=== PATIENT | male | born 2000 | race African-American/Black ===

== ENCOUNTER 2022-05-12 14:32 | Outpatient (AMB) | payer MEDICAID, SELFPAY ==
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
== END 2022-05-12 16:13 | disposition home or self-care (01) ==
LOC: HO.HUSH 14:32
PROVIDERS: Visit Provider Urology
DX: G82.20 Paraplegia, unspecified (principal)
CPT/HCPCS: 99499

== ENCOUNTER → 2022-11-07 13:32 | Outpatient (BNVA) | payer MEDICAID, SELFPAY | PROVIDERS: Visit Provider Urology | DX: Z13.89 Encounter for screening for other disorder (principal) ==

== ENCOUNTER 2023-06-01 12:33 | Outpatient (REF) | payer OTHER, SELFPAY ==
--- NOTE | ~2023-06-01 | US_ITS ---
EXAMINATION: US RETROPERITONEAL LIMITED (RENAL ONLY) CLINICAL INFORMATION: Neuromuscular dysfunction of the bladder, unspecified. COMPARISON: Renal ultrasound 04/15/2020 and 11/28/2018. TECHNIQUE: Real-time imaging of the kidneys. FINDINGS: RIGHT KIDNEY: 9.2 x 4.4 x 5.0 cm (SAG x AP x TRV). The kidney is normal in size, contour, and echogenicity. Renal cortical thickness is normal. No calculi or focal parenchymal lesions. No hydronephrosis. LEFT KIDNEY: 9.4 x 4.7 x 5.0 cm (SAG x AP x TRV). The kidney is normal in size, contour, and echogenicity. Renal cortical thickness is normal. No calculi or focal parenchymal lesions. No hydronephrosis. US/US renal BI IMPRESSION: Normal renal ultrasound.
== END 2023-06-01 12:34 | disposition home or self-care (01) ==
LOC: HO.US 12:33
PROVIDERS: PCP Internal Medicine; Visit Provider Urology
DX: N31.9 Neuromuscular dysfunction of bladder, unspecified (principal)
CPT/HCPCS: 76775

== ENCOUNTER 2023-09-07 13:15 | Outpatient (AMB) | payer OTHER, SELFPAY ==
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
--- OUTSIDE RECORDS SUMMARY | 2023-09-07 13:17 | XMS_ITS | Continuity of Care Document ---
Author Name Unknown Organization [facility] Adult Address [address] [place] [address]- Care Team Providers Care Safety Patrol Officer Name Role Phone Peace MEDINA, Tacho Primary Care Physician Encounter [facility] Date(s): 02/19/23 - 03/21/23 [facility] [address] [place] [address]- Allergies, Adverse Reactions, Alerts Substance Reaction Severity [...] CONSTIPATION, # 30 supp, 5 Refills, Maintenance, 10/20/22 16:57:00 EST, [facility] #[id number], 168, cm, 05/15/22 15:58:00 EDT, Height Start Date: 10/20/22 Status: Ordered Chucks pads Chucks pads, See [...] 5 Refills, Maintenance, 02/01/23 16:28:00 EDT, Tablet, [facility] #[id number], 168, cm, 02/01/23 16:04:00 EDT... Start Date: 02/01/23 Stop Date: 07/31/23 Status: Ordered gabapentin 800 mg oral tablet 1 tablet, By Mouth, 3 times a day, # 270 tablet, 3 Refills, Maintenance, 12/21/22 14:00:00 EST, [facility] #[id number], 168, cm, 12/19/22 13:54:00 EST, Height Start Date: 12/21/22 Stop Date: 12/16/23 Status: Ordered nystatin topical 973622 u/gm cream 1 application, Topically, 2 times a day, Apply to affected area, # 30 Gm, 0 Refills, Maintenance, 12/20/22 11:25:00 EST, Cream, [facility] #[id number], 1 application Topically 2 times a day,Instr:Apply to affected area, 168, cm, 12/19/22 13:54:00... Start Date: 12/20/22 Status: Ordered polyethylene glycol 3350 oral powder for reconstitution = 17 Gm, By Mouth, Daily, dissolve in water before taking, # 527 Gm, 0 Refills, Maintenance, 03/19/20 16:16:00 EDT, REC Powder, [facility] #[id number], 17 Gm By Mouth Daily,Instr:dissolve in water before taking, 168, cm, 01/09/20 13:26:00 EST, He... Start Date: 03/19/20 Status: Ordered sertraline 50 mg oral tablet 1 tablet, By Mouth, Daily, # 90 tablet, 1 Refills, Maintenance, 10/23/22 10:10:00 EST, [facility] #[id number], 168, cm, 05/15/22 15:58:00 EDT, Height Start Date: 10/23/22 Status: Ordered triamcinolone 0.025% topical cream See Instructions, APPLY TOPICALLY TO THE AFFECTED AREA TWICE DAILY FOR 14 DAYS, # 60 Gm, 0 Refills,Maintenance, 12/20/22 11:25:00 EST, [facility] #[id number], 28, APPLY TOPICALLY TO THE AFFECTED AREA [...] Team Personnel Name: Celeste Manriquez RN Position: [facility] RN Member Role: Primary Care Nurse Name: Emerson Parra RN Position: [facility] RN Member Role: Primary Care Nurse Name: Radha Baldwin RN Position: [facility] RN Member Role: Primary Care Nurse Name: Alec Dangelo RN Position: [facility] Outreach Member Role: Primary Care Nurse Name: Cathy Santo RN Position: [facility] RN Member Role: Primary Care Nurse Name: Tosin Styles RN Position: [facility] Assembly Member Member Role: Primary Care Nurse Name: Lorene Martinez RN Position: [facility] Executive Chairman Member Role: Primary Care Nurse Name: Tacho Hand MD Position: [facility] Primary Care Physician Member Role: PCP Address: Address: [address] [place] [address] Name: Therese Schwab RN Position: [facility] RN Member Role: Primary Care Nurse Name: Andria Dillon RN Position: [facility] RN Member Role: Primary Care Nurse Care Team Related Persons Name: FLORES LONG Address: [place] [address] Name: GERALDINE COPELAND Address: home [address] [place] [address] Name: MABEL COPELAND Address: home [address] [place] [address]
--- OUTSIDE RECORDS SUMMARY | 2023-09-07 13:17 | XMS_ITS | Continuity of Care Document ---
Author Name Unknown Organization [facility] Adult Address [address] [place] [address]- Care Team Providers Care Coil Winder Repair Name Role Phone Peace MEDINA, Tacho Primary Care Physician En[place] [facility] Date(s): 12/19/22 - 01/18/23 [facility] Adult [address] [place] [address]- Allergies, Adverse Reactions, Alerts Substance Reaction Severity Status Latex Active Immunizations Not Given Vaccine Date Status Refusal Reason Influenza Virus Vaccine (oldterm) 12/22/19 Not Giv en Patient Refuses influenza virus vaccine, inactivated 08/06/17 Not Given Patient Refuses influenza virus vaccine, inactivated 11/21/16 Not Given Patient Refuses Medications bisacodyl 10 mg rectal suppository 1 supp, Rectally, Daily, PRN NEEDED FOR CONSTIPATION, # 30 supp, 5 Refills, Maintenance, 10/20/22 [facility]:57:[id number], 168, cm, 05/15/22 15:58:00 EDT, Height Start Date: 10/20/22 Status: Ordered gabapentin 800 mg oral tablet 1 tablet, By Mouth, 3 times a day, # 270 tablet, 3 Refills, Maintenance, 12/21/22 14:00:[id number], 168, cm, 12/19/22 13:54:00 EST, Height Start Date: 12/21/22 Stop Date: 12/16/23 Status: Ordered nystatin topical 453277 u/gm cream 1 application, Topically, 2 times a day, Apply to affected area, # 30 Gm, 0 Refills, Maintenance, 12/20/22 11:25:00 EST, [facility][id number], 1 application Topically 2 times a day,Instr:Apply to affected area, 168, cm, 12/19/22 13:54:00... Start Date: 12/20/22 Status: Ordered polyethylene glycol 3350 oral powder for reconstitution = 17 Gm, By Mouth, Daily, dissolve in water before taking, # 527 Gm, 0 Refills, Maintenance, 03/19/20 16:16:00 EDT, REC Powder, [facility] #[id number], 17 Gm By Mouth Daily,Instr:dissolve in water before taking, 168, cm, 01/09/20 13:26:00 EST, He... Start Date: 03/19/20 Status: Ordered sertraline 50 mg oral tablet 1 tablet, By Mouth, Daily, # 90 tablet, 1 Refills, Maintenance, 10/23/22 10:10:00 EST, [facility] #[id number], 168, cm, 05/15/22 15:58:00 EDT, Height Start Date: 10/23/22 Status: Ordered triamcinolone 0.025% topical cream See Instructions, APPLY TOPICALLY TO THE AFFECTED AREA TWICE DAILY FOR 14 DAYS, # 60 Gm, 0 Refills,Maintenance, 12/20/22 11:25:00 EST, [facility] #[id number], 28, APPLY TOPICALLY TO THE AFFECTED AREA [...] Team Personnel Name: Celeste Manriquez RN Position: [facility] RN Member Role: Primary Care Nurse Name: Emerson Parra RN Position: [facility] RN Member Role: Primary Care Nurse Name: Radha Baldwin RN Position: [facility] RN Member Role: Primary Care Nurse Name: Alec Dangelo RN Position: [facility] Outreach Member Role: Primary Care Nurse Name: Cathy Santo RN Position: [facility] RN Member Role: Primary Care Nurse Name: Tosin Styles RN Position: [facility] SN Denture Processor Member Role: Primary Care Nurse Name: Lorene Martinez RN Position: [facility] Hospital Care Asst Member Role: Primary Care Nurse Name: Tacho Hand MD Position: [facility] Primary Care Physician Member Role: PCP Address: Address: [address] [place] [address]- Name: Therese Schwab RN Position: [facility] RN Member Role: Primary Care Nurse Name: Andria Dillon RN Position: [facility] RN Member Role: Primary Care Nurse Care Team Related Persons Name: FLORES LONG Address: [place] [address] Name: GERALDINE COPELAND Address: [address] [place] [address] Name: MABEL COPELAND Address: [address] [address]
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
--- OUTSIDE RECORDS SUMMARY | 2023-09-07 13:17 | XMS_ITS | Continuity of Care Document ---
Author Name Unknown Organization [facility] Address [address] [place] [address]- Care Team Providers Care Medical Officer Psychiatry Name Role Phone Peace MEDINA, Tacho Primary Care Physician Encounter [facility] Date(s): 11/21/22 - 12/21/[address] [id number] Allergies, Adverse Reactions, Alerts Substance Reaction Severity [...] 30 supp, 5 Refills, Maintenance, 10/20/22 16:57:00 [facility] #[id number], 168, cm, 05/15/22 15:58:00 EDT, Height Start Date: 10/20/22 Status: Ordered gabapentin 800 mg oral tablet 1 tablet, By Mouth, 3 times a day, # 270 tablet, 3 Refills, Maintenance, 12/21/22 14:00:00 [facility] #[id number], 168, cm, 12/19/22 13:54:00 EST, Height Start Date: 12/21/22 Stop Date: 12/16/23 Status: Ordered nystatin topical 244342 u/gm cream 1 application, Topically, 2 times a day, Apply to affected area, # 30 Gm, 0 Refills, Maintenance, 12/20/22 11:25:00 EST, [facility] #[id number], 1 application Topically 2 times a day,Instr:Apply to affected area, 168, cm, 12/19/22 13:54:00... Start Date: 12/20/22 Status: Ordered polyethylene glycol 3350 oral powder for reconstitution = 17 Gm, By Mouth, Daily, dissolve in water before taking, # 527 Gm, 0 Refills, Maintenance, 03/19/20 16:16:00 EDT, REC Powder, [facility] #[id number], 17 Gm By Mouth Daily,Instr:dissolve in water before taking, 168, cm, 01/09/20 13:26:00 EST, He... Start Date: 03/19/20 Status: Ordered sertraline 50 mg oral tablet 1 tablet, By Mouth, Daily, # 90 tablet, 1 Refills, Maintenance, 10/23/22 10:10:00 EST, [facility] #[id number], 168, cm, 05/15/22 15:58:00 EDT, Height Start Date: 10/23/22 Status: Ordered triamcinolone 0.025% topical cream See Instructions, APPLY TOPICALLY TO THE AFFECTED AREA TWICE DAILY FOR 14 DAYS, # 60 Gm, 0 Refills,Maintenance, 12/20/22 11:25:00 EST, [facility] #[id number], 28, APPLY TOPICALLY TO THE AFFECTED AREA [...] Team Personnel Name: Celeste Manriquez RN Position: [facility] SN RN Member Role: Primary Care Nurse Name: Emerson Parra RN Position: [facility] RN Member Role: Primary Care Nurse Name: Radha Baldwin RN Position: [facility] RN Member Role: Primary Care Nurse Name: Alec Dangelo RN Position: [facility] Outreach Member Role: Primary Care Nurse Name: Cathy Santo RN Position: [facility] RN Member Role: Primary Care Nurse Name: Tosin Styles RN Position: [facility] SN Biology Teacher Member Role: Primary Care Nurse Name: Lorene Martinez RN Position: [facility] Hospital Curb Attendant Member Role: Primary Care Nurse Name: ePace MEDINA, Tacho Position: [facility] Primary Care Physician Member Role: PCP Address: Address: [address] [place] [address]- Name: Therese Schwab RN Position: [facility] RN Member Role: Primary Care Nurse Name: Andria Dillon RN Position: [facility] RN Member Role: Primary Care Nurse Care Team Related Persons Name: FLORES LONG Address: [place] [address] Name: GERALDINE COPELAND Address: home [address] [place] [address] Name: MABEL COPELAND Address: [address] [address]
--- NOTE | 2023-09-07 13:18 | MHC.OFFVIS ---
Intake Intake Visit Reasons: US results follow up Intake Note: Patient is Present for Telephone Follow Up US Urology Med: Methenamine Antibiotic Allergy: None Blood Thinner:None Pharamcy: [facility] Medication List - Last Reconciled 09/07/23 by Je Currie MD ascorbic acid (vitamin C) 1 g PO DAILY 90 days baclofen 10 mg PO DAILY bisacodyl 10 mg [place] DAILY PRN gabapentin 800 mg PO TID methenamine hippurate 1 g PO DAILY 90 days sertraline 50 mg PO DAILY underpads As directed 3 pads per day HPI HPI Comments History of Present Illness Details Awilda is a pleasant male. He is a patient of Dr. Hand. He is seen for the following urologic conditions - spinal cord injury - sexual impairment Telemedicine Evaluation 15 min Consultation DoxPrinciple Power Miranda Video attempted No infections since starting combination vitamin-C and methenamine Continue medication Minimal issues with catheter delivery As questions about insurance coverage for Self catheterization T5 spinal cord injury July 2016 Performs intermittent catheterization - this will be expected to be ongoing for the foreseeable future Renal ultrasound 06/10 NAD Has questions regarding sexual activity Would like to investigate intimate rider accessories Will have nursing check insurance availability Review of Systems Const All systems reviewed & are unremarkable except as noted in HPI and below Reports no additional complaints Resp Reports no additional complaints GI Reports no additional complaints Reports as per HPI Musc Reports no additional complaints Physical Exam Telemedicine evaluation Appropriate responses Regular breathing rate and rhythm HEENT Head: Yes normal to inspection Ears: hearing grossly normal bilaterally Eyes General: appearance normal, both eyes and all related structures Neck Neck: Yes normal visual inspection Chest Chest palpation & inspection: normal inspection of the chest Resp Effort & Inspection: normal respiratory effort and able to speak in complete sentences Assessment & Plan Assessment & Plan (1) Erectile dysfunction due to injury: Code(s): N52.8 - Other male erectile dysfunction (2) Neurogenic urinary bladder disorder: Code(s): N31.9 - Neuromuscular dysfunction of bladder, unspecified (3) 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 No major barriers to patient understanding were identified. An opportunity to ask questions regarding the treatment plan was provided. All questions were answered. The patient expressed understanding and agreement with the above treatment plan. The patient is aware they should contact our office by phone for worsening of their current condition or the appearance of new urologic symptoms. Compliance is encouraged with any medications and followup testing that is ordered. It is a privilege to participate in the urologic care of your patient. If you have any questions or concerns regarding treatment for the above conditions, or other urologic issues, please do not hesitate to contact me. The office telephone contact is [phone]. This note is constructed using voice recognition software. While every effort has been made to ensure accuracy water pollution control inspector errors may have been included. Yours sincerely, Dr Je Currie MD, [facility] - Urology Providers of Expert, Compassionate Care for the Genitourinary System Telehealth Telehealth Location of provider rendering services: practice address Location of patient: address on file Patient Identification confirmed using: Name, : Yes Telehealth method: video Patient verbally consented to treatment: Yes Patient verbally consented to billing insurance company: Yes Patient informed of any privacy concerns related to visit: Yes Coding Level of Care Code Tele Est Pt Level 3 (16533) Diagnoses Erectile dysfunction due to injury N52.8 Neurogenic urinary bladder disorder N31.9 Paraplegic spinal paralysis G82.20
--- OUTSIDE RECORDS SUMMARY | 2023-09-07 13:18 | XMS_ITS | Continuity of Care Document ---
Author Name Unknown Organization [facility] Address [address] [place] [address]- Care Team Providers Care Cracking Unit Operator Name Role Phone Peace MEDINA, Tacho Primary Care Physician [phone] [facility] Date(s): 11/22/22 - 12/22/22 [facility] [address] [place] [address]- Allergies, Adverse Reactions, Alerts Substance Reaction Severity [...] 30 supp, 5 Refills, Maintenance, 10/20/22 16:57:00 [facility] #[id number], 168, cm, 05/15/22 15:58:00 EDT, Height Start Date: 10/20/22 Status: Ordered gabapentin 800 mg oral tablet 1 tablet, By Mouth, 3 times a day, # 270 tablet, 3 Refills, Maintenance, 12/21/22 14:00:00 [facility] #[id number], 168, cm, 12/19/22 13:54:00 EST, Height Start Date: 12/21/22 Stop Date: 12/16/23 Status: Ordered nystatin topical 778726 u/gm cream 1 application, Topically, 2 times a day, Apply to affected area, # 30 Gm, 0 Refills, Maintenance, 12/20/22 11:25:00 EST, Cream, [facility] #[id number], 1 application Topically 2 times a day,Instr:Apply to affected area, 168, cm, 12/19/22 13:54:00... Start Date: 12/20/22 Status: Ordered polyethylene glycol 3350 oral powder for reconstitution = 17 Gm, By Mouth, Daily, dissolve in water before taking, # 527 Gm, 0 Refills, Maintenance, 03/19/20 16:16:00 EDT, REC Powder, [facility] #[id number], 17 Gm By Mouth Daily,Instr:dissolve in water before taking, 168, cm, 01/09/20 13:26:00 EST, He... Start Date: 03/19/20 Status: Ordered sertraline 50 mg oral tablet 1 tablet, By Mouth, Daily, # 90 tablet, 1 Refills, Maintenance, 10/23/22 10:10:00 EST, [facility] #[id number], 168, cm, 05/15/22 15:58:00 EDT, Height Start Date: 10/23/22 Status: Ordered triamcinolone 0.025% topical cream See Instructions, APPLY TOPICALLY TO THE AFFECTED AREA TWICE DAILY FOR 14 DAYS, # 60 Gm, 0 Refills,Maintenance, 12/20/22 11:25:00 EST, [facility] #[id number], 28, APPLY TOPICALLY TO THE AFFECTED AREA [...] Team Personnel Name: Celeste Manriquez RN Position: [facility] SN RN Member Role: Primary Care Nurse Name: Emerson Parra RN Position: [facility] RN Member Role: Primary Care Nurse Name: Radha Baldwin RN Position: [facility] RN Member Role: Primary Care Nurse Name: Alec Dangelo RN Position: [facility] Outreach Member Role: Primary Care Nurse Name: Cathy Santo RN Position: [facility] RN Member Role: Primary Care Nurse Name: Tosin Styles RN Position: [facility] SN Medical Assistant Secretary Member Role: Primary Care Nurse Name: Lorene Martinez RN Position: [facility] Hospital Pottery Striper Member Role: Primary Care Nurse Name: Peace MEDINA, Tacho Position: [facility] Primary Care Physician Member Role: PCP Address: Address: [address] [place] [address]- Name: Therese Schwab RN Position: [facility] RN Member Role: Primary Care Nurse Name: Andria Dillon RN Position: [facility] RN Member Role: Primary Care Nurse Care Team Related Persons Name: FLORES LONG Address: [place] [address] Name: GERALDINE COPELAND Address: home [address] [place] [address] Name: MABEL COPELAND Address: home [address] [place] [address]
--- OUTSIDE RECORDS SUMMARY | 2023-09-07 13:18 | XMS_ITS | Continuity of Care Document ---
Author Name Unknown Organization [facility] Address [address] [place] [address]- Care Team Providers Care Applications Engineer Name Role Phone Tacho Hand MD Primary Care Physician [phone] Encounter [facility] Date(s): 12/21/22 - 01/20/23 [facility] [address] [place] [address]- Attending Physician: Reyna Zuniga Admitting Physician: AdmReyna pardo Referring Physician: AdmtrReyna Allergies, Adverse Reactions, Alerts Substance Reaction Severity [...] 30 supp, 5 Refills, Maintenance, 10/20/22 16:57:00 [id number], 168, cm, 05/15/22 15:58:00 EDT, Height Start Date: 10/20/22 Status: Ordered gabapentin 800 mg oral tablet 1 tablet, By Mouth, 3 times a day, # 270 tablet, 3 Refills, Maintenance, 12/21/22 14:00:00 [facility] #[id number], 168, cm, 12/19/22 13:54:00 EST, Height Start Date: 12/21/22 Stop Date: 12/16/23 Status: Ordered nystatin topical 895536 u/gm cream 1 application, Topically, 2 times a day, Apply to affected area, # 30 Gm, 0 Refills, Maintenance, 12/20/22 11:25:00 EST, Cream, [facility] #[id number], 1 application Topically 2 times a day,Instr:Apply to affected area, 168, cm, 12/19/22 13:54:00... Start Date: 12/20/22 Status: Ordered polyethylene glycol 3350 oral powder for reconstitution = 17 Gm, By Mouth, Daily, dissolve in water before taking, # 527 Gm, 0 Refills, Maintenance, 03/19/20 16:16:00 EDT, REC Powder, [facility] #[id number], 17 Gm By Mouth Daily,Instr:dissolve in water before taking, 168, cm, 01/09/20 13:26:00 EST, He... Start Date: 03/19/20 Status: Ordered sertraline 50 mg oral tablet 1 tablet, By Mouth, Daily, # 90 tablet, 1 Refills, Maintenance, 10/23/22 10:10:00 EST, [facility] #[id number], 168, cm, 05/15/22 15:58:00 EDT, Height Start Date: 10/23/22 Status: Ordered triamcinolone 0.025% topical cream See Instructions, APPLY TOPICALLY TO THE AFFECTED AREA TWICE DAILY FOR 14 DAYS, # 60 Gm, 0 Refills,Maintenance, 12/20/22 11:25:00 EST, [facility] #[id number], 28, APPLY TOPICALLY TO THE AFFECTED AREA [...] Team Personnel Name: Celeste Manriquez RN Position: [facility] RN Member Role: Primary Care Nurse Name: Emerson Parra RN Position: [facility] RN Member Role: Primary Care Nurse Name: Radha Baldwin RN Position: [facility] RN Member Role: Primary Care Nurse Name: Alec Dangelo RN Position: [facility] Outreach Member Role: Primary Care Nurse Name: Cathy Santo RN Position: [facility] RN Member Role: Primary Care Nurse Name: Tosin Styles RN Position: [facility] SN Rn Transitional Care Member Role: Primary Care Nurse Name: Lorene Martinez RN Position: [facility] Hospital Chemical Machine Tender Member Role: Primary Care Nurse Name: Peace MEDINA, Tacho Position: [facility] Primary Care Physician Member Role: PCP Address: Address: [address] [place] [id number] Name: Therese Schwab RN Position: [facility] RN Member Role: Primary Care Nurse Name: Andria Dillon RN Position: [facility] RN Member Role: Primary Care Nurse Care Team Related Persons Name: FLORES LONG Address: [place] [address] Name: GERALDINE COPELAND Address: home [address] [place] [address] Name: MABEL COPELAND Address: home [address] [place] [address]
--- OUTSIDE RECORDS SUMMARY | 2023-09-07 13:18 | XMS_ITS | Continuity of Care Document ---
Author Name Unknown Organization [facility] Address [address] [place] [address]- Care Team Providers Care Market Maker Name Role Phone Tacho Hand MD Primary Care Physician [phone] Encounter [facility] Date(s): 02/12/23 - 03/14/23 [facility] [address] [place] [address]- Allergies, Adverse Reactions, Alerts Substance Reaction Severity [...] supp, 5 Refills, Maintenance, 10/20/22 16:57:00 EST, [facility] #[id number], 168, cm, 05/15/22 15:58:00 EDT, Height Start [...] 5 Refills, Maintenance, 02/01/23 16:28:00 EDT, Tablet, [facility] #[id number], 168, cm, 02/01/23 16:04:00 EDT... Start Date: 02/01/23 Stop Date: 07/31/23 Status: Ordered gabapentin 800 mg oral tablet 1 tablet, By Mouth, 3 times a day, # 270 tablet, 3 Refills, Maintenance, 12/21/22 14:00:00 EST, [facility] #[id number], 168, cm, 12/19/22 13:54:00 EST, Height Start Date: 12/21/22 Stop Date: 12/16/23 Status: Ordered nystatin topical 142283 u/gm cream 1 application, Topically, 2 times a day, Apply to affected area, # 30 Gm, 0 Refills, Maintenance, 12/20/22 11:25:00 EST, Cream, [facility] #44712, 1 application Topically 2 times a day,Instr:Apply to affected area, 168, cm, 12/19/22 13:54:00... Start Date: 12/20/22 Status: Ordered polyethylene glycol 3350 oral powder for reconstitution = 17 Gm, By Mouth, Daily, dissolve in water before taking, # 527 Gm, 0 Refills, Maintenance, 03/19/20 16:16:00 EDT, REC Powder, [facility] #[id number], 17 Gm By Mouth Daily,Instr:dissolve in water before taking, 168, cm, 01/09/20 13:26:00 EST, He... Start Date: 03/19/20 Status: Ordered sertraline 50 mg oral tablet 1 tablet, By Mouth, Daily, # 90 tablet, 1 Refills, Maintenance, 10/23/22 10:10:00 EST, [facility] #[id number], 168, cm, 05/15/22 15:58:00 EDT, Height Start Date: 10/23/22 Status: Ordered triamcinolone 0.025% topical cream See Instructions, APPLY TOPICALLY TO THE AFFECTED AREA TWICE DAILY FOR 14 DAYS, # 60 Gm, 0 Refills,Maintenance, 12/20/22 11:25:00 EST, [facility] #[id number], 28, APPLY TOPICALLY TO THE AFFECTED AREA [...] Team Personnel Name: Celeste Manriquez RN Position: [facility] RN Member Role: Primary Care Nurse Name: Emerson Parra RN Position: [facility] RN Member Role: Primary Care Nurse Name: Radha Baldwin RN Position: [facility] RN Member Role: Primary Care Nurse Name: Alec Dangelo RN Position: [facility] Outreach Member Role: Primary Care Nurse Name: Cathy Santo RN Position: [facility] RN Member Role: Primary Care Nurse Name: Tosin Styles RN Position: [facility] Trailer Technician Member Role: Primary Care Nurse Name: Lorene Martinez RN Position: [facility] Hospital Instrumentation And Control Technician Member Role: Primary Care Nurse Name: Tacho Hand MD Position: [facility] Primary Care Physician Member Role: PCP Address: Address: [address] [place] [address]- Name: Therese Schwab RN Position: [facility] RN Member Role: Primary Care Nurse Name: Andria Dillon RN Position: [facility] RN Member Role: Primary Care Nurse Care Team Related Persons Name: FLORES LONG Address: [place] [address] Name: GERALDINE COPELAND Address: [address] [place] [address] Name: MABEL COPELAND Address: home [address] [place] [address]
--- OUTSIDE RECORDS SUMMARY | 2023-09-07 13:18 | XMS_ITS | Continuity of Care Document ---
Author Name Unknown Organization [facility] Address [address] [place] [address]- Care Team Providers Care Pan Pusher Name Role Phone Peace MEDINA, Tacho Primary Care Physician [phone] [place] [facility] [place]s): 01/09/23 - 05/26/23 [facility] [address] [place] [address]- Attending Physician: Tacho Hand MD Allergies, Adverse [...] supp, 5 Refills, Maintenance, 04/11/23 10:41:00 EDT, [facility] #[id number], 168, cm, 02/01/23 16:04:00 EDT, Height Start [...] 5 Refills, Maintenance, 02/01/23 16:28:00 EDT, Tablet, [facility] #[id number], 168, cm, 02/01/23 16:04:00 EDT... Start Date: 02/01/23 Stop Date: 07/31/23 Status: Ordered gabapentin 800 mg oral tablet 1 tablet, By Mouth, 3 times a day, # 270 tablet, 3 Refills, Maintenance, 12/21/22 14:00:00 EST, [facility] #[id number], 168, cm, 12/19/22 13:54:00 EST, Height Start Date: 12/21/22 Stop Date: 12/16/23 Status: Ordered nystatin topical 170260 u/gm cream 1 application, Topically, 2 times a day, Apply to affected area, # 30 Gm, 0 Refills, Maintenance, 12/20/22 11:25:00 EST, Cream, [facility] #[id number], 1 application Topically 2 times a day,Instr:Apply to affected area, 168, cm, 12/19/22 13:54:00... Start Date: 12/20/22 Status: Ordered polyethylene glycol 3350 oral powder for reconstitution = 17 Gm, By Mouth, Daily, dissolve in water before taking, # 527 Gm, 0 Refills, Maintenance, 03/19/20 16:16:00 EDT, REC Powder, [facility] #26485, 17 Gm By Mouth Daily,Instr:dissolve in water before taking, 168, cm, 01/09/20 13:26:00 EST, He... Start Date: 03/19/20 Status: Ordered sertraline 50 mg oral tablet 1 tablet, By Mouth, Daily, # 90 tablet, 1 Refills, Maintenance, 10/23/22 10:10:00 EST, [facility] #[id number], 168, cm, 05/15/22 15:58:00 EDT, Height Start Date: 10/23/22 Status: Ordered triamcinolone 0.025% topical cream See Instructions, APPLY TOPICALLY TO THE AFFECTED AREA TWICE DAILY FOR 14 DAYS, # 60 Gm, 0 Refills,Maintenance, 12/20/22 11:25:00 EST, [facility] #[id number], 28, APPLY TOPICALLY TO THE AFFECTED AREA [...] Team Personnel Name: Celeste Manriquez RN Position: [facility] RN Member Role: Primary Care Nurse Name: [...] Care Nurse Name: Tosin Styles RN Position: [facility] Toll Collector Supervisor Member Role: Primary Care Nurse Name: Lorene Martinez RN Position: [facility] Hospital Plastic Sewer Member Role: Primary Care Nurse Name: Tacho Hand MD Position: [facility] Physician - Primary Care Member Role: PCP Address: Address: [address] [place] [address] Name: Therese Schwab RN Position: [facility] RN Member Role: Primary Care Nurse Name: Andria Dillon RN Position: [facility] RN Member Role: Primary Care Nurse Care Team Related Persons Name: JEREMIAH LONGES Address: [place] [address] Name: GERALDINE COPELAND Address: home [address] [place] [address] Name: MABEL COPELAND Address: home [address] [place] [address]
--- OUTSIDE RECORDS SUMMARY | 2023-09-07 13:19 | XMS_ITS | Continuity of Care Document ---
Author Name Unknown Organization [facility] Adult Address [address] [place] [address]- Care Team Providers Care Sanitary Inspector Name Role Phone Peace MEDINA, Tacho Primary Care Physician [phone] Encounter [facility] [place] Date(s): 05/09/23 - 06/08/23 [facility] [address] [place] [phone]- Allergies, Adverse Reactions, Alerts Substance Reaction Severity [...] supp, 5 Refills, Maintenance, 04/11/23 10:41:00 EDT, [facility] #[id number], 168, cm, 02/01/23 16:04:00 EDT, Height Start [...] 5 Refills, Maintenance, 02/01/23 16:28:00 EDT, Tablet, [facility] #[id number], 168, cm, 02/01/23 16:04:00 EDT... Start Date: 02/01/23 Stop Date: 07/31/23 Status: Ordered gabapentin 800 mg oral tablet 1 tablet, By Mouth, 3 times a day, # 270 tablet, 3 Refills, Maintenance, 12/21/22 14:00:00 EST, [facility] #[id number], 168, cm, 12/19/22 13:54:00 EST, Height Start Date: 12/21/22 Stop Date: 12/16/23 Status: Ordered nystatin topical 460146 u/gm cream 1 application, Topically, 2 times a day, Apply to affected area, # 30 Gm, 0 Refills, Maintenance, 12/20/22 11:25:00 EST, Cream, [facility] #00414, 1 application Topically 2 times a day,Instr:Apply to affected area, 168, cm, 12/19/22 13:54:00... Start Date: 12/20/22 Status: Ordered polyethylene glycol 3350 oral powder for reconstitution = 17 Gm, By Mouth, Daily, dissolve in water before taking, # 527 Gm, 0 Refills, Maintenance, 03/19/20 16:16:00 EDT, REC Powder, [facility] #[id number], 17 Gm By Mouth Daily,Instr:dissolve in water before taking, 168, cm, 01/09/20 13:26:00 EST, He... Start Date: 03/19/20 Status: Ordered sertraline 50 mg oral tablet 1 tablet, By Mouth, Daily, # 90 tablet, 1 Refills, Maintenance, 10/23/22 10:10:00 EST, [facility] #[id number], 168, cm, 05/15/22 15:58:00 EDT, Height Start Date: 10/23/22 Status: Ordered triamcinolone 0.025% topical cream See Instructions, APPLY TOPICALLY TO THE AFFECTED AREA TWICE DAILY FOR 14 DAYS, # 60 Gm, 0 Refills,Maintenance, 12/20/22 11:25:00 EST, [facility] #[id number], 28, APPLY TOPICALLY TO THE AFFECTED AREA [...] Care Nurse Name: Tosin Styles RN Position: [facility] Press Shop Supervisor Member Role: Primary Care Nurse Name: Lorene Martinez RN Position: [facility] Or Assistant Member Role: Primary Care Nurse Name: Tacho Hand MD Position: [facility] Physician - Primary Care Member Role: PCP Address: Address: [address] [place] [address]- Name: Therese Schwab RN Position: [facility] RN Member Role: Primary Care Nurse Name: Andria Dillon RN Position: [facility] RN Member Role: Primary Care Nurse Care Team Related Persons Name: FLORES LONG Address: [place] [address] Name: GERALDINE COPELAND Address: home [address] [place] [address] Name: MABEL COPELAND Address: home [address] [place] [id number]
--- OUTSIDE RECORDS SUMMARY | 2023-09-07 13:19 | XMS_ITS | Continuity of Care Document ---
Author Name Unknown Organization [facility] Adult Address [address] [place] [address]- Care Team Providers Care Orchard Pruner Name Role Phone Peace MEDINA, Tacho Primary Care Physician [phone] [place] [facility] [place] 11/28/22 - 12/28/22 [facility] Adult [address] [place] [address]- Allergies, Adverse Reactions, Alerts Substance Reaction Severity [...] 30 supp, 5 Refills, Maintenance, 10/20/22 16:57:00 [facility][id number], 168, cm, 05/15/22 15:58:00 EDT, Height Start Date: 10/20/22 Status: Ordered gabapentin 800 mg oral tablet 1 tablet, By Mouth, 3 times a day, # 270 tablet, 3 Refills, Maintenance, 12/21/22 14:00:00 [facility] #[id number], 168, cm, 12/19/22 13:54:00 EST, Height Start Date: 12/21/22 Stop Date: 12/16/23 Status: Ordered nystatin topical 730106 u/gm cream 1 application, Topically, 2 times a day, Apply to affected area, # 30 Gm, 0 Refills, Maintenance, 12/20/22 11:25:00 EST, Cream, [facility] #[id number], 1 application Topically 2 times a day,Instr:Apply to affected area, 168, cm, 12/19/22 13:54:00... Start Date: 12/20/22 Status: Ordered polyethylene glycol 3350 oral powder for reconstitution = 17 Gm, By Mouth, Daily, dissolve in water before taking, # 527 Gm, 0 Refills, Maintenance, 03/19/20 16:16:00 EDT, REC Powder, [facility] #[id number], 17 Gm By Mouth Daily,Instr:dissolve in water before taking, 168, cm, 01/09/20 13:26:00 EST, He... Start Date: 03/19/20 Status: Ordered sertraline 50 mg oral tablet 1 tablet, By Mouth, Daily, # 90 tablet, 1 Refills, Maintenance, 10/23/22 10:10:00 EST, [facility] #[id number], 168, cm, 05/15/22 15:58:00 EDT, Height Start Date: 10/23/22 Status: Ordered triamcinolone 0.025% topical cream See Instructions, APPLY TOPICALLY TO THE AFFECTED AREA TWICE DAILY FOR 14 DAYS, # 60 Gm, 0 Refills,Maintenance, 12/20/22 11:25:00 EST, [facility] #[id number], 28, APPLY TOPICALLY TO THE AFFECTED AREA [...] Team Personnel Name: Celeste Manriquez RN Position: [facility] SN RN Member Role: Primary Care Nurse Name: Emerson Parra RN Position: [facility] RN Member Role: Primary Care Nurse Name: Radha Baldwin RN Position: [facility] RN Member Role: Primary Care Nurse Name: Alec Dangelo RN Position: [facility] Outreach Member Role: Primary Care Nurse Name: Cathy Santo RN Position: [facility] RN Member Role: Primary Care Nurse Name: Tosin Styles RN Position: [facility] SN Chorus Dancer Member Role: Primary Care Nurse Name: Lorene Martinez RN Position: [facility] Hospital Bomb Squad Officer Member Role: Primary Care Nurse Name: Peace MEDINA, Tacho Position: [facility] Primary Care Physician Member Role: PCP Address: Address: [address] [place] [id number]- Name: Therese Schwab RN Position: [facility] RN Member Role: Primary Care Nurse Name: Andria Dillon RN Position: [facility] RN Member Role: Primary Care Nurse Care Team Related Persons Name: FLORES LONG Address: [place] [address] Name: GERALDINE COPELAND Address: home [address] [place] [address] Name: MABEL COPELAND Address: home [address] [place] [address]
--- OUTSIDE RECORDS SUMMARY | 2023-09-07 13:19 | XMS_ITS | Continuity of Care Document ---
Author Name Unknown Organization [facility] Adult Address [address] [place] [address]- Care Team Providers Care Manager Golf Name Role Phone Peace MEDINA, Tacho Primary Care Physician En[place] [facility] [place] Date(s): 11/01/22 - 12/01/22 [facility] Adult [address] [place] [phone]- Allergies, Adverse Reactions, Alerts Substance Reaction Severity Status Latex Active Immunizations Not Given Vaccine Date Status Refusal Reason Influenza Virus Vaccine (oldterm) 12/22/19 Not Giv en Patient Refuses influenza virus vaccine, inactivated 08/06/17 Not Given Patient Refuses influenza virus vaccine, inactivated 11/21/16 Not Given Patient Refuses Medications ammonium lactate 12% topical lotion 1 application, Topically, Daily, # 567 Gm, 0 Refills, Maintenance, 06/28/22 7:36:00 EDT, Lotion, [facility] #[id number], Partial fill upon patient request if the prescription is for a schedule II opioid drug., 1 application Topically Daily, 168,... Start Date: 06/28/22 Status: Ordered Aquaphor Itch Relief Maximum Strength 1% topical ointment See Instructions, Topically 2 times a day for 2 wks, # 25 Gm, 0 Refills, Maintenance, 05/15/22 17:17:00 EDT, [facility] #[id number], Partial fill upon patient request if the prescription is for a schedule II opioid drug., Topically 2 times a day... Start Date: 05/15/22 Status: Ordered Big long shower chair Big long shower chair, See Instructions, # 1 each, Refills 0, Tot. Refills 0, Maintenance, Big longshower chair weighs 168 pounds, 10/26/22 19:50:00 EST, Supply, 168, cm, 10/26/22 10:39:00 EST, Height Start Date: 10/26/22 Status: Ordered bisacodyl 10 mg rectal suppository 1 supp, Rectally, Daily, PRN NEEDED FOR CONSTIPATION, # 30 supp, 5 Refills, Maintenance, 10/20/22 16:57:00 EST, [facility] #[id number], 168, cm, 05/15/22 15:58:00 EDT, Height Start Date: 10/20/22 Status: Ordered gabapentin 800 mg oral tablet See Instructions, TAKE 1 TABLET BY MOUTH THREE TIMES DAILY, # 90 tablet, 0 Refills, Maintenance, 11/24/22 9:51:00 EST, [facility] #[id number], 168, cm, 10/26/22 10:39:00 EST, Height Start Date: 11/24/22 Status: Ordered gabapentin 800 mg oral tablet 1 tablet, By Mouth, 3 times a day, # 90 tablet, 0 Refills, Maintenance, 10/24/22 9:20:00 EST, [facility] #[id number], 168, cm, 05/15/22 15:58:00 EDT, Height Start Date: 10/24/22 Status: Ordered Hand-held shower Hand-held shower, See Instructions, # 1 each, Refills 0, Tot. Refills 0, Maintenance, Use as directed, 10/26/22 22:03:00 EST, [facility], 168, cm, 10/26/22 10:39:00 EST, Height Start Date: 10/26/22 Status: Ordered nystatin topical 413574 u/gm cream 1 application, Topically, 2 times a day, Apply to affected area, # 30 Gm, 0 Refills, Maintenance, 06/09/22 14:50:00 EDT, Cream, [facility] #[id number], 1 application Topically 2 times a day,Instr:Apply to affected area, 168, cm, 05/15/22 15:58:00... Start Date: 06/09/22 Status: Ordered polyethylene glycol 3350 oral powder for reconstitution = 17 Gm, By Mouth, Daily, dissolve in water before taking, # 527 Gm, 0 Refills, Maintenance, 03/19/20 16:16:00 EDT, REC Powder, [facility] #51543, 17 Gm By Mouth Daily,Instr:dissolve in water before taking, 168, cm, 01/09/20 13:26:00 EST, He... Start Date: 03/19/20 Status: Ordered sertraline 50 mg oral tablet 1 tablet, By Mouth, Daily, # 90 tablet, 1 Refills, Maintenance, 10/23/22 10:10:00 EST, [facility] #[id number], 168, cm, 05/15/22 15:58:00 EDT, Height Start Date: 10/23/22 Status: Ordered triamcinolone 0.025% topical cream See Instructions, APPLY TOPICALLY TO THE AFFECTED AREA TWICE DAILY FOR 14 DAYS, # 60 Gm, 0 Refills,Maintenance, 10/24/22 9:19:00 EST, [facility] #[id number], 28, APPLY TOPICALLY TO THE AFFECTEDAREA TWICE DAILY FOR 14 DAYS, 168, cm, 05/15/22 15:... Start Date: 10/24/22 Status: Ordered Problem List Condition Confirmation Course Effective Dates Status Health St [facility] Informant History of alcohol dependence Confirmed Active Learning disability Confirmed Stable Active Major depression, recurrent Confirmed Active Spinal paraplegia 1 Confirmed Active 1after shot in the back Social History Social History Type Response Smoking Status Never (less than 100 in lifetime) entered on: 12/22/19 Sex Male Patient Care team information Care Team Personnel Name: Celeste Manriquez RN Position: [facility] RN Member Role: Primary Care Nurse Name: Emerson Parra RN Position: [facility] RN Member Role: Primary Care Nurse Name: Radha Baldwin RN Position: [facility] RN Member Role: Primary Care Nurse Name: Alec Dangelo RN Position: [facility] Outreach Member Role: Primary Care Nurse Name: Cathy Santo RN Position: [facility] RN Member Role: Primary Care Nurse Name: Tosin Styles RN Position: [facility] Border Measurer Member Role: Primary Care Nurse Name: Lorene Martinez RN Position: [facility] Hospital Armored Car Guard And Driver Member Role: Primary Care Nurse Name: Tacho Hand MD Position: [facility] Primary Care Physician Member Role: PCP Address: Address: [address] [place] [id number] Name: Therese Schwab RN Position: S RN Member Role: Primary Care Nurse Name: Andria Dillon RN Position: S RN Member Role: Primary Care Nurse Care Team Related Persons Name: FLORES LONG Address: [place] [address] Name: GERALDINE COPELAND Address: home [address] [place] [address] Name: MABEL COPELAND Address: [place] [address]
--- OUTSIDE RECORDS SUMMARY | 2023-09-07 13:19 | XMS_ITS | Continuity of Care Document ---
Author Name Unknown Organization [facility] Adult Address [address] [place] [address]- Care Team Providers Care Gyroscopic Instrument Mechanic Name Role Phone Peace MEDINA, Tacho Primary Care Physician [phone] Encounter [facility] [place] Date(s): 11/17/22 - 12/17/22 [facility] Adult [address] [place] [address]- Allergies, Adverse Reactions, Alerts Substance Reaction Severity [...] 0 Refills, Maintenance, 06/28/22 7:36:00 EDT, Lotion, [facility] #[id number], Partial fill upon patient request if the prescription is for a schedule II opioid drug., 1 application Topically Daily, 168,... Start Date: 06/28/22 Status: Ordered Aquaphor Itch Relief Maximum Strength 1% topical ointment See Instructions, Topically 2 times a day for 2 wks, # 25 Gm, 0 Refills, Maintenance, 05/15/22 17:17:00 EDT, [facility] #[id number], Partial fill upon patient request if the [...] supp, 5 Refills, Maintenance, 10/20/22 16:57:00 EST, [facility] #[id number], 168, cm, 05/15/22 15:58:00 EDT, Height Start Date: 10/20/22 Status: Ordered gabapentin 800 mg oral tablet See Instructions, TAKE 1 TABLET BY MOUTH THREE TIMES DAILY, # 90 tablet, 0 Refills, Maintenance, 11/24/22 9:51:00 EST, [facility] #[id number], 168, cm, 10/26/22 10:39:00 EST, Height Start Date: 11/24/22 Status: Ordered gabapentin 800 mg oral tablet 1 tablet, By Mouth, 3 times a day, # 90 tablet, 0 Refills, Maintenance, 10/24/22 9:20:00 EST, [facility] #[id number], 168, cm, 05/15/22 15:58:00 EDT, Height Start Date: 10/24/22 Status: Ordered Hand-held shower Hand-held shower, See Instructions, # 1 each, Refills 0, Tot. Refills 0, Maintenance, Use as directed, 10/26/22 22:03:00 EST, [facility], 168, cm, 10/26/22 10:39:00 EST, Height Start Date: 10/26/22 Status: Ordered nystatin topical 811570 u/gm cream 1 application, Topically, 2 times a day, Apply to affected area, # 30 Gm, 0 Refills, Maintenance, 06/09/22 14:50:00 EDT, Cream, [facility] #[id number], 1 application Topically 2 times a day,Instr:Apply to affected area, 168, cm, 05/15/22 15:58:00... Start Date: 06/09/22 Status: Ordered polyethylene glycol 3350 oral powder for reconstitution = 17 Gm, By Mouth, Daily, dissolve in water before taking, # 527 Gm, 0 Refills, Maintenance, 03/19/20 16:16:00 EDT, REC Powder, [facility] #[id number], 17 Gm By Mouth Daily,Instr:dissolve in water before taking, 168, cm, 01/09/20 13:26:00 EST, He... Start Date: 03/19/20 Status: Ordered sertraline 50 mg oral tablet 1 tablet, By Mouth, Daily, # 90 tablet, 1 Refills, Maintenance, 10/23/22 10:10:00 EST, [facility] #48198, 168, cm, 05/15/22 15:58:00 EDT, Height Start Date: 10/23/22 Status: Ordered triamcinolone 0.025% topical cream See Instructions, APPLY TOPICALLY TO THE AFFECTED AREA TWICE DAILY FOR 14 DAYS, # 60 Gm, 0 Refills,Maintenance, 10/24/22 9:19:00 EST, [facility] #[id number], 28, APPLY TOPICALLY TO THE AFFECTEDAREA TWICE [...] Team Personnel Name: Celeste Manriquez RN Position: [facility] RN Member Role: Primary Care Nurse [...] Care Nurse Name: Tosin Styles RN Position: [facility] Charger Tester Member Role: Primary Care Nurse Name: Lorene Martinez RN Position: [facility] Hospital Aerial Tram Operator Member Role: Primary Care Nurse Name: Tacho Hand MD Position: [facility] Primary Care Physician Member Role: PCP Address: Address: [address] [place] [phone]- [place] Name: Therese Schwab RN Position: S RN Member Role: Primary Care Nurse Name: Andria Dillon RN Position: S RN Member Role: Primary Care Nurse Care Team Related Persons Name: FLORES LONG Address: [place] [address] Name: JANIYAGERALDINE MORALES Address: home [address] [place] [address] Name: MABEL COPELAND Address: [place] [address]
--- OUTSIDE RECORDS SUMMARY | 2023-09-07 13:19 | XMS_ITS | Continuity of Care Document ---
Author Name Unknown Organization [facility] Adult Address [address] [place] [address]- Care Team Providers Care Business Support Name Role Phone Peace MEDINA, Tacho Primary Care Physician Encounter [facility] [place] Date(s): 10/13/22 - 11/12/22 [facility] Adult [address] [place] [phone]- Allergies, Adverse Reactions, Alerts Substance Reaction Severity [...] 0 Refills, Maintenance, 06/28/22 7:36:00 EDT, Lotion, [facility] #[id number], Partial fill upon patient request if the prescription is for a schedule II opioid drug., 1 application Topically Daily, 168,... Start Date: 06/28/22 Status: Ordered Aquaphor Itch Relief Maximum Strength 1% topical ointment See Instructions, Topically 2 times a day for 2 wks, # 25 Gm, 0 Refills, Maintenance, 05/15/22 17:17:00 EDT, [facility] #[id number], Partial fill upon patient request if the [...] supp, 5 Refills, Maintenance, 10/20/22 16:57:00 EST, [facility] #[id number], 168, cm, 05/15/22 15:58:00 EDT, Height Start Date: 10/20/22 Status: Ordered gabapentin 800 mg oral tablet 1 tablet, By Mouth, 3 times a day, # 90 tablet, 0 Refills, Maintenance, 10/24/22 9:20:00 EST, [facility] #[id number], 168, cm, 05/15/22 15:58:00 EDT, Height Start Date: 10/24/22 Status: Ordered Hand-held shower Hand-held shower, See Instructions, # 1 each, Refills 0, Tot. Refills 0, Maintenance, Use as directed, 10/26/22 22:03:00 EST, [facility], 168, cm, 10/26/22 10:39:00 EST, Height Start Date: 10/26/22 Status: Ordered nystatin topical 785971 u/gm cream 1 application, Topically, 2 times a day, Apply to affected area, # 30 Gm, 0 Refills, Maintenance, 06/09/22 14:50:00 EDT, Cream, [facility] #58753, 1 application Topically 2 times a day,Instr:Apply to affected area, 168, cm, 05/15/22 15:58:00... Start Date: 06/09/22 Status: Ordered polyethylene glycol 3350 oral powder for reconstitution = 17 Gm, By Mouth, Daily, dissolve in water before taking, # 527 Gm, 0 Refills, Maintenance, 03/19/20 16:16:00 EDT, REC Powder, [facility] #98208, 17 Gm By Mouth Daily,Instr:dissolve in water before taking, 168, cm, 01/09/20 13:26:00 EST, He... Start Date: 03/19/20 Status: Ordered sertraline 50 mg oral tablet 1 tablet, By Mouth, Daily, # 90 tablet, 1 Refills, Maintenance, 10/23/22 10:10:00 EST, [facility] #[id number], 168, cm, 05/15/22 15:58:00 EDT, Height Start Date: 10/23/22 Status: Ordered triamcinolone 0.025% topical cream See Instructions, APPLY TOPICALLY TO THE AFFECTED AREA TWICE DAILY FOR 14 DAYS, # 60 Gm, 0 Refills,Maintenance, 10/24/22 9:19:00 EST, [facility] #11420, 28, APPLY TOPICALLY TO THE AFFECTEDAREA TWICE [...] Team Personnel Name: Celeste Manriquez RN Position: [facility] RN Member Role: Primary Care Nurse [...] Care Nurse Name: Tosin Styles RN Position: [facility] Scientific Research Manager Member Role: Primary Care Nurse Name: Lorene Martinez RN Position: [facility] Hospital Relay Adjuster Member Role: Primary Care Nurse Name: Tacho Hand MD Position: [facility] Primary Care Physician Member Role: PCP Address: Address: [address] [place] [address]- Name: Therese Schwab RN Position: [facility] RN Member Role: Primary Care Nurse Name: Andria Dillon RN Position: [facility] RN Member Role: Primary Care Nurse Care Team Related Persons Name: FLORES LONG Address: [place] [address] Name: GERALDINE COPELAND Address: [address] [address] Name: MABEL COPELAND Address: home [address] [place] [address]
--- OUTSIDE RECORDS SUMMARY | 2023-09-07 13:19 | XMS_ITS | Continuity of Care Document ---
Author Name Unknown Organization [facility] Adult Address [address] [place] [address]- Care Team Providers Care Milk Of Lime Slaker Name Role Phone Peace MEDINA, Tacho Primary Care Physician [phone] Encounter [facility] [place] [facility] [id number] Date(s): 06/21/23 - 07/21/[address] [facility] Adult [address] [place] [address]- Allergies, Adverse Reactions, Alerts Substance Reaction Severity Status Latex Active Medications baclofen 10 mg oral tablet See [...] supp, 5 Refills, Maintenance, 04/11/23 10:41:00 EDT, [facility] #[id number], 168, cm, 02/01/23 16:04:00 EDT, Height Start [...] 5 Refills, Maintenance, 02/01/23 16:28:00 EDT, Tablet, [facility] #18209, 168, cm, 02/01/23 16:04:00 EDT... Start Date: 02/01/23 Stop Date: 07/31/23 Status: Ordered gabapentin 800 mg oral tablet 1 tablet, By Mouth, 3 times a day, # 270 tablet, 3 Refills, Maintenance, 12/21/22 14:00:00 EST, [facility] #09385, 168, cm, 12/19/22 13:54:00 EST, Height Start Date: 12/21/22 Stop Date: 12/16/23 Status: Ordered nystatin topical 640209 u/gm cream 1 application, Topically, 2 times a day, Apply to affected area, # 30 Gm, 0 Refills, Maintenance, 06/22/23 8:57:00 EDT, Cream, [facility] #99551, 1 application Topically 2 times a day,Instr:Apply to affected area, 168, cm, 02/01/23 16:04:00... Start Date: 06/22/23 Status: Ordered polyethylene glycol 3350 oral powder for reconstitution = 17 Gm, By Mouth, Daily, dissolve in water before taking, # 527 Gm, 0 Refills, Maintenance, 03/19/20 16:16:00 EDT, REC Powder, [facility] #67096, 17 Gm By Mouth Daily,Instr:dissolve in water before taking, 168, cm, 01/09/20 13:26:00 EST, He... Start Date: 03/19/20 Status: Ordered sertraline 50 mg oral tablet 1 tablet, By Mouth, Daily, # 90 tablet, 1 Refills, Maintenance, 10/23/22 10:10:00 EST, [facility] #29227, 168, cm, 05/15/22 15:58:00 EDT, Height Start Date: 10/23/22 Status: Ordered triamcinolone 0.025% topical cream See Instructions, APPLY TOPICALLY TO THE AFFECTED AREA TWICE DAILY FOR 14 DAYS, # 60 Gm, 0 Refills,Maintenance, 12/20/22 11:25:00 EST, [facility] #51631, 28, APPLY TOPICALLY TO THE AFFECTED AREA [...] Team Personnel Name: Celeste Manriquez RN Position: [facility] RN Member Role: Primary Care Nurse Name: Emerson Parra RN Position: [facility] RN Member Role: Primary Care Nurse Name: Radha Baldwin RN Position: [facility] RN Member Role: Primary Care Nurse Name: Alec Dangelo RN Position: [facility] Outreach Member Role: Primary Care Nurse Name: Cathy Santo RN Position: [facility] RN Member Role: Primary Care Nurse Name: Tosin Styles RN Position: [facility] Marine Steam Fitter Helper Member Role: Primary Care Nurse Name: Lorene Martinez RN Position: [facility] Hospital Tumbler Drier Operator Member Role: Primary Care Nurse Name: Tacho Hand MD Position: [facility] Physician - Primary Care Member Role: PCP Address: Address: [address] [place] [id number] Name: Therese Schwab RN Position: [facility] RN Member Role: Primary Care Nurse Name: Andria Dillon RN Position: [facility] RN Member Role: Primary Care Nurse Care Team Related Persons Name: FLORES LONG Address: [place] [address] Name: GERALDINE COPELAND Address: home [address] [place] [address] Name: MABEL COPELAND Address: home [address] [place] [id number]
--- OUTSIDE RECORDS SUMMARY | 2023-09-07 13:19 | XMS_ITS | Continuity of Care Document ---
Author Name Unknown Organization [facility] Adult Address [address] [place] [address]- Care Team Providers Care Warehouse Representative Name Role Phone Peace MEDINA, Tacho Primary Care Physician [phone] [place] [facility] [place] 11/21/22 - 12/21/22 [facility] Adult [address] [place] [address]- Allergies, Adverse Reactions, Alerts Substance Reaction Severity [...] 30 supp, 5 Refills, Maintenance, 10/20/22 16:57:00 [facility][id number], 168, cm, 05/15/22 15:58:00 EDT, Height Start Date: 10/20/22 Status: Ordered gabapentin 800 mg oral tablet 1 tablet, By Mouth, 3 times a day, # 270 tablet, 3 Refills, Maintenance, 12/21/22 14:00:00 [facility] #[id number], 168, cm, 12/19/22 13:54:00 EST, Height Start Date: 12/21/22 Stop Date: 12/16/23 Status: Ordered nystatin topical 464789 u/gm cream 1 application, Topically, 2 times a day, Apply to affected area, # 30 Gm, 0 Refills, Maintenance, 12/20/22 11:25:00 EST, Cream, [facility] #[id number], 1 application Topically 2 times a day,Instr:Apply to affected area, 168, cm, 12/19/22 13:54:00... Start Date: 12/20/22 Status: Ordered polyethylene glycol 3350 oral powder for reconstitution = 17 Gm, By Mouth, Daily, dissolve in water before taking, # 527 Gm, 0 Refills, Maintenance, 03/19/20 16:16:00 EDT, REC Powder, [facility] #[id number], 17 Gm By Mouth Daily,Instr:dissolve in water before taking, 168, cm, 01/09/20 13:26:00 EST, He... Start Date: 03/19/20 Status: Ordered sertraline 50 mg oral tablet 1 tablet, By Mouth, Daily, # 90 tablet, 1 Refills, Maintenance, 10/23/22 10:10:00 EST, [facility] #[id number], 168, cm, 05/15/22 15:58:00 EDT, Height Start Date: 10/23/22 Status: Ordered triamcinolone 0.025% topical cream See Instructions, APPLY TOPICALLY TO THE AFFECTED AREA TWICE DAILY FOR 14 DAYS, # 60 Gm, 0 Refills,Maintenance, 12/20/22 11:25:00 EST, Currently STORE #[id number], 28, APPLY TOPICALLY TO THE AFFECTED AREA [...] Team Personnel Name: Celeste Manriquez RN Position: [facility] SN RN Member Role: Primary Care Nurse Name: Emerson Parra RN Position: [facility] RN Member Role: Primary Care Nurse Name: Radha Baldwin RN Position: [facility] RN Member Role: Primary Care Nurse Name: Alec Dangelo RN Position: [facility] Outreach Member Role: Primary Care Nurse Name: Cathy Santo RN Position: [facility] RN Member Role: Primary Care Nurse Name: Tosin Styles RN Position: [facility] SN Shim Plug Cutter Member Role: Primary Care Nurse Name: Lorene Martinez RN Position: [facility] Hospital Development Eng Member Role: Primary Care Nurse Name: Peace MEDINA, Tacho Position: [facility] Primary Care Physician Member Role: PCP Address: Address: [address] [place] [address]- Name: Therese Schwab RN Position: [facility] RN Member Role: Primary Care Nurse Name: Andria Dillon RN Position: [facility] RN Member Role: Primary Care Nurse Care Team Related Persons Name: FLORES LONG Address: [place] [address] Name: GERALDINE COPELAND Address: home [address] [place] [address] Name: MABEL COPELAND Address: home [address] [place] [address]
--- OUTSIDE RECORDS SUMMARY | 2023-09-07 13:19 | XMS_ITS | Continuity of Care Document ---
Author Name Unknown Organization [facility] Address [address] [facility], [address]t [address] [place] [address]- Care Team Providers Care Curtain Worker Name Role Phone Tacho Hand MD Primary Care Physician [phone] Encounter [facility] [place] Date(s): 11/21/22 - 12/21/22 [facility] [address] [facility], [address]th [address] [place] [address] Allergies, Adverse Reactions, Alerts Substance Reaction Severity [...] 30 supp, 5 Refills, Maintenance, 10/20/22 16:57:00 [facility] #[id number], 168, cm, 05/15/22 15:58:00 EDT, Height Start Date: 10/20/22 Status: Ordered gabapentin 800 mg oral tablet 1 tablet, By Mouth, 3 times a day, # 270 tablet, 3 Refills, Maintenance, 12/21/22 14:00:00 [facility] #[id number], 168, cm, 12/19/22 13:54:00 EST, Height Start Date: 12/21/22 Stop Date: 12/16/23 Status: Ordered nystatin topical 091898 u/gm cream 1 application, Topically, 2 times a day, Apply to affected area, # 30 Gm, 0 Refills, Maintenance, 12/20/22 11:25:00 EST, [facility] #55909, 1 application Topically 2 times a day,Instr:Apply to affected area, 168, cm, 12/19/22 13:54:00... Start Date: 12/20/22 Status: Ordered polyethylene glycol 3350 oral powder for reconstitution = 17 Gm, By Mouth, Daily, dissolve in water before taking, # 527 Gm, 0 Refills, Maintenance, 03/19/20 16:16:00 EDT, REC Powder, [facility] #[id number], 17 Gm By Mouth Daily,Instr:dissolve in water before taking, 168, cm, 01/09/20 13:26:00 EST, He... Start Date: 03/19/20 Status: Ordered sertraline 50 mg oral tablet 1 tablet, By Mouth, Daily, # 90 tablet, 1 Refills, Maintenance, 10/23/22 10:10:00 EST, [facility] #[id number], 168, cm, 05/15/22 15:58:00 EDT, Height Start Date: 10/23/22 Status: Ordered triamcinolone 0.025% topical cream See Instructions, APPLY TOPICALLY TO THE AFFECTED AREA TWICE DAILY FOR 14 DAYS, # 60 Gm, 0 Refills,Maintenance, 12/20/22 11:25:00 EST, [facility] #[id number], 28, APPLY TOPICALLY TO THE AFFECTED AREA [...] Team Personnel Name: Celeste Manriquez RN Position: [facility] RN Member Role: Primary Care Nurse Name: Emerson Parra RN Position: [facility] RN Member Role: Primary Care Nurse Name: Radha Baldwin RN Position: [facility] RN Member Role: Primary Care Nurse Name: Alec Dangelo RN Position: [facility] Outreach Member Role: Primary Care Nurse Name: Cathy Santo RN Position: [facility] RN Member Role: Primary Care Nurse Name: Tosin Styles RN Position: [facility] SN Relations Director Member Role: Primary Care Nurse Name: Lorene Martinez RN Position: [facility] Hospital Construction Services Technician Member Role: Primary Care Nurse Name: Tacho Hand MD Position: [facility] Primary Care Physician Member Role: PCP Address: Address: [address] [place] [address] 3rd [place] [address]- Name: Therese Schwab RN Position: [facility] RN Member Role: Primary Care Nurse Name: Andria Dillon RN Position: [facility] RN Member Role: Primary Care Nurse Care Team Related Persons Name: FLORES LONG Address: [place] [address] Name: GERALDINE COPELAND Address: home [address] [place] [address] Name: MABEL COPELAND Address: home [address] [place] [address]
--- OUTSIDE RECORDS SUMMARY | 2023-09-07 13:19 | XMS_ITS | Continuity of Care Document ---
Author Name Unknown Organization [facility] Address [address] [place] [address]- Care Team Providers Care Secretary Of Police Name Role Phone Peace MEDINA, Tacho Primary Care Physician [place] [facility] [place](s): 05/01/23 - 05/31/23 [facility] Adult [address] [place] [address]- Allergies, Adverse Reactions, Alerts Substance Reaction Severity [...] supp, 5 Refills, Maintenance, 04/11/23 10:41:00 EDT, [facility] #[id number], 168, cm, 02/01/23 16:04:00 EDT, Height Start [...] 5 Refills, Maintenance, 02/01/23 16:28:00 EDT, Tablet, [facility] #[id number], 168, cm, 02/01/23 16:04:00 EDT... Start Date: 02/01/23 Stop Date: 07/31/23 Status: Ordered gabapentin 800 mg oral tablet 1 tablet, By Mouth, 3 times a day, # 270 tablet, 3 Refills, Maintenance, 12/21/22 14:00:00 EST, [facility] #[id number], 168, cm, 12/19/22 13:54:00 EST, Height Start Date: 12/21/22 Stop Date: 12/16/23 Status: Ordered nystatin topical 895105 u/gm cream 1 application, Topically, 2 times a day, Apply to affected area, # 30 Gm, 0 Refills, Maintenance, 12/20/22 11:25:00 EST, Cream, [facility] #[id number], 1 application Topically 2 times a day,Instr:Apply to affected area, 168, cm, 12/19/22 13:54:00... Start Date: 12/20/22 Status: Ordered polyethylene glycol 3350 oral powder for reconstitution = 17 Gm, By Mouth, Daily, dissolve in water before taking, # 527 Gm, 0 Refills, Maintenance, 03/19/20 16:16:00 EDT, REC Powder, [facility] #[id number], 17 Gm By Mouth Daily,Instr:dissolve in water before taking, 168, cm, 01/09/20 13:26:00 EST, He... Start Date: 03/19/20 Status: Ordered sertraline 50 mg oral tablet 1 tablet, By Mouth, Daily, # 90 tablet, 1 Refills, Maintenance, 10/23/22 10:10:00 EST, [facility] #[id number], 168, cm, 05/15/22 15:58:00 EDT, Height Start Date: 10/23/22 Status: Ordered triamcinolone 0.025% topical cream See Instructions, APPLY TOPICALLY TO THE AFFECTED AREA TWICE DAILY FOR 14 DAYS, # 60 Gm, 0 Refills,Maintenance, 12/20/22 11:25:00 EST, [facility] #[id number], 28, APPLY TOPICALLY TO THE AFFECTED AREA [...] Team Personnel Name: Celeste Manriquez RN Position: [facility] SN RN Member Role: Primary Care Nurse Name: Emerson Parra RN Position: [facility] RN Member Role: Primary Care Nurse Name: Radha Baldwin RN Position: [facility] RN Member Role: Primary Care Nurse Name: Alec Dangelo RN Position: [facility] Outreach Member Role: Primary Care Nurse Name: Cathy Santo RN Position: [facility] RN Member Role: Primary Care Nurse Name: Tosin Styles RN Position: [facility] Squeegeer And Former Member Role: Primary Care Nurse Name: Lorene Martinez RN Position: [facility] Industrial Aerial Installer Member Role: Primary Care Nurse Name: Tacho Hand MD Position: [facility] Physician - Primary Care Member Role: PCP Address: Address: [address] [place] [address]- Name: Therese Schwab RN Position: [facility] RN Member Role: Primary Care Nurse Name: Andria Dillon RN Position: [facility] RN Member Role: Primary Care Nurse Care Team Related Persons Name: FLORES LONG Address: [place] [address] Name: GERALDINE COPELAND Address: [address] [place] [address] Name: MABEL COPELAND Address: home [address] [place] [address]
--- OUTSIDE RECORDS SUMMARY | 2023-09-07 13:20 | XMS_ITS | Continuity of Care Document ---
Author Name Unknown Organization [facility] Adult Address [address] [place] [address]- Care Team Providers Care Pan Dumper Name Role Phone Peace MEDINA, Tacho Primary Care Physician Encounter [facility] [place] Date(s): 10/19/22 - 11/18/22 [facility] [address] [place] [address]- Allergies, Adverse Reactions, Alerts Substance Reaction Severity [...] 0 Refills, Maintenance, 06/28/22 7:36:00 EDT, Lotion, [facility] #[id number], Partial fill upon patient request if the prescription is for a schedule II opioid drug., 1 application Topically Daily, 168,... Start Date: 06/28/22 Status: Ordered Aquaphor Itch Relief Maximum Strength 1% topical ointment See Instructions, Topically 2 times a day for 2 wks, # 25 Gm, 0 Refills, Maintenance, 05/15/22 17:17:00 EDT, [facility] #[id number], Partial fill upon patient request if the [...] supp, 5 Refills, Maintenance, 10/20/22 16:57:00 EST, [facility] #[id number], 168, cm, 05/15/22 15:58:00 EDT, Height Start Date: 10/20/22 Status: Ordered gabapentin 800 mg oral tablet 1 tablet, By Mouth, 3 times a day, # 90 tablet, 0 Refills, Maintenance, 10/24/22 9:20:00 EST, [facility] #[id number], 168, cm, 05/15/22 15:58:00 EDT, Height Start Date: 10/24/22 Status: Ordered Hand-held shower Hand-held shower, See Instructions, # 1 each, Refills 0, Tot. Refills 0, Maintenance, Use as directed, 10/26/22 22:03:00 EST, Supply, 168, cm, 10/26/22 10:39:00 EST, Height Start Date: 10/26/22 Status: Ordered nystatin topical 511997 u/gm cream 1 application, Topically, 2 times a day, Apply to affected area, # 30 Gm, 0 Refills, Maintenance, 06/09/22 14:50:00 EDT, Cream, [facility] #[id number], 1 application Topically 2 times a day,Instr:Apply to affected area, 168, cm, 05/15/22 15:58:00... Start Date: 06/09/22 Status: Ordered polyethylene glycol 3350 oral powder for reconstitution = 17 Gm, By Mouth, Daily, dissolve in water before taking, # 527 Gm, 0 Refills, Maintenance, 03/19/20 16:16:00 EDT, REC Powder, [facility] #[id number], 17 Gm By Mouth Daily,Instr:dissolve in water before taking, 168, cm, 01/09/20 13:26:00 EST, He... Start Date: 03/19/20 Status: Ordered sertraline 50 mg oral tablet 1 tablet, By Mouth, Daily, # 90 tablet, 1 Refills, Maintenance, 10/23/22 10:10:00 EST, [facility] #[id number], 168, cm, 05/15/22 15:58:00 EDT, Height Start Date: 10/23/22 Status: Ordered triamcinolone 0.025% topical cream See Instructions, APPLY TOPICALLY TO THE AFFECTED AREA TWICE DAILY FOR 14 DAYS, # 60 Gm, 0 Refills,Maintenance, 10/24/22 9:19:00 EST, [facility] #[id number], 28, APPLY TOPICALLY TO THE AFFECTEDAREA TWICE [...] Team Personnel Name: Celeste Manriquez RN Position: [facility] RN Member Role: Primary Care Nurse Name: Emerson Parra RN Position: [facility] RN Member Role: Primary Care Nurse Name: Radha Baldwin RN Position: [facility] RN Member Role: Primary Care Nurse Name: Alec Dangelo RN Position: [facility] Outreach Member Role: Primary Care Nurse Name: Cathy Santo RN Position: [facility] RN Member Role: Primary Care Nurse Name: Tosin Styles RN Position: [facility] Mold Dresser Member Role: Primary Care Nurse Name: Lorene Martinez RN Position: [facility] Hospital Tip Mender Member Role: Primary Care Nurse Name: Tacho Hand MD Position: [facility] Primary Care Physician Member Role: PCP Address: Address: [address] [place] [address]- Name: Therese Schwab RN Position: [facility] RN Member Role: Primary Care Nurse Name: Andria Dillon RN Position: [facility] RN Member Role: Primary Care Nurse Care Team Related Persons Name: FLORES LONG Address: [place] [address] Name: GERALDINE COPELAND Address: [address] [address] Name: MABEL COPELAND Address: home [address] [place] [address]
--- OUTSIDE RECORDS SUMMARY | 2023-09-07 13:20 | XMS_ITS | Continuity of Care Document ---
Author Name Unknown Organization [facility] Adult Address [address] [place] [address]- Care Team Providers Care Drill Foreman Name Role Phone Peace MEDINA, Tacho Primary Care Physician Encounter [facility] [place] [place] [facility] [id number] Date(s): 08/17/23 - 08/24/23 [facility] Adult [address] [place] [address]- Encounter Diagnosis Spinal paraplegia(Discharge Diagnosis) - 08/17/23 Attending Physician: Tacho Hand MD Allergies, Adverse [...] supp, 5 Refills, Maintenance, 04/11/23 10:41:00 EDT, [facility] #[id number], 168, cm, 02/01/23 16:04:00 EDT, Height Start [...] 5 Refills, Maintenance, 02/01/23 16:28:00 EDT, Tablet, [facility] #[id number], 168, cm, 02/01/23 16:04:00 EDT... Start Date: 02/01/23 Stop Date: 07/31/23 Status: Ordered gabapentin 800 mg oral tablet 1 tablet, By Mouth, 3 times a day, # 270 tablet, 3 Refills, Maintenance, 12/21/22 14:00:00 EST, [facility] #[id number], 168, cm, 12/19/22 13:54:00 EST, Height Start Date: 12/21/22 Stop Date: 12/16/23 Status: Ordered nystatin topical 812353 u/gm cream 1 application, Topically, 2 times a day, Apply to affected area, # 30 Gm, 0 Refills, Maintenance, 06/22/23 8:57:00 EDT, Cream, [facility] #[id number], 1 application Topically 2 times a day,Instr:Apply to affected area, 168, cm, 02/01/23 16:04:00... Start Date: 06/22/23 Status: Ordered polyethylene glycol 3350 oral powder for reconstitution = 17 Gm, By Mouth, Daily, dissolve in water before taking, # 527 Gm, 0 Refills, Maintenance, 03/19/20 16:16:00 EDT, REC Powder, [facility] #[id number], 17 Gm By Mouth Daily,Instr:dissolve in water before taking, 168, cm, 01/09/20 13:26:00 EST, He... Start Date: 03/19/20 Status: Ordered sertraline 50 mg oral tablet 1 tablet, By Mouth, Daily, # 90 tablet, 1 Refills, Maintenance, 10/23/22 10:10:00 EST, [facility] #[id number], 168, cm, 05/15/22 15:58:00 EDT, Height Start Date: 10/23/22 Status: Ordered triamcinolone 0.025% topical cream See Instructions, APPLY TOPICALLY TO THE AFFECTED AREA TWICE DAILY FOR 14 DAYS, # 60 Gm, 0 Refills,Maintenance, 12/20/22 11:25:00 EST, [facility] #[id number], 28, APPLY TOPICALLY TO THE AFFECTED AREA TWICE DAILY FOR 14 DAYS, 168, cm, 12/19/22 13... Start Date: 12/20/22 Status: Ordered Problem List Condition Confirmation Course Effective Dates Status Health St atus Informant Anemia Confirmed Active History of alcohol dependence Confirmed Active Learning disability Confirmed Stable Active Obese class I Confirmed Active Major depression, recurrent Confirmed Active Spinal paraplegia 1 Confirmed Active 1after shot in the back Diagnosis Diagnosis Type Effective Dates Health Status Clinical Service Informant Spinal paraplegia Discharge Diagnosis 08/17/23 Vital Signs Most recent to oldest [Reference Range]: 1 Height 168 cm (08/17/23 1:19 PM) Weight 87.5 kg (08/17/23 1:19 PM) Body Mass Index [18.5-24.99 kg/m2] 31 kg /m2 *>HHI* (08/17/23 1:19 PM) Weight Obtained Via Patient/family state d (08/17/23 1:19 PM) Social History Social History Type Response Smoking Status Never (less than 100 in lifetime) entered on: 12/22/19 Sex Male Patient Care team information Care Team Personnel Name: Celeste Manriquez RN Position: [facility] RN Member Role: Primary Care Nurse Name: Emerson Parra RN Position: [facility] RN Member Role: Primary Care Nurse Name: Radha Baldwin RN Position: [facility] RN Member Role: Primary Care Nurse Name: Alec Dangelo RN Position: [facility] Outreach Member Role: Primary Care Nurse Name: Cathy Santo RN Position: [facility] RN Member Role: Primary Care Nurse Name: Tosin Styles RN Position: [facility] SN Rehabilitation Nurse Member Role: Primary Care Nurse Name: Lorene Martinez RN Position: [facility] Hospital Polystyrene Bead Molder Member Role: Primary Care Nurse Name: Tacho Hand MD Position: [facility] Physician - Primary Care Member Role: PCP Address: Address: [address] [place] [address] [address] [place] [address]- Name: Therese Schwab RN Position: [facility] RN Member Role: Primary Care Nurse Name: Andria Dillon RN Position: [facility] RN Member Role: Primary Care Nurse Care Team Related Persons Name: ETHAN FLORES Address: [place] [address] Name: GERALDINE COPELAND Address: home [address] [place] [address] Name: MABEL COPELAND Address: [place] [address]
--- OUTSIDE RECORDS SUMMARY | 2023-09-07 13:20 | XMS_ITS | Continuity of Care Document ---
Author Name Unknown Organization [facility] Adult Address [address] [place] [address]- Care Team Providers Care Oyster Picker Name Role Phone Peace MEDINA, Tacho Primary Care Physician Encounter [facility] [place] Date(s): 12/20/22 - 01/19/23 [facility] Adult [address] [place] [phone]- Allergies, Adverse Reactions, Alerts Substance Reaction Severity [...] 30 supp, 5 Refills, Maintenance, 10/20/22 16:57:00 [facility][id number], 168, cm, 05/15/22 15:58:00 EDT, Height Start Date: 10/20/22 Status: Ordered gabapentin 800 mg oral tablet 1 tablet, By Mouth, 3 times a day, # 270 tablet, 3 Refills, Maintenance, 12/21/22 14:00:00 [facility] #[id number], 168, cm, 12/19/22 13:54:00 EST, Height Start Date: 12/21/22 Stop Date: 12/16/23 Status: Ordered nystatin topical 432470 u/gm cream 1 application, Topically, 2 times a day, Apply to affected area, # 30 Gm, 0 Refills, Maintenance, 12/20/22 11:25:00 EST, [facility] #56473, 1 application Topically 2 times a day,Instr:Apply to affected area, 168, cm, 12/19/22 13:54:00... Start Date: 12/20/22 Status: Ordered polyethylene glycol 3350 oral powder for reconstitution = 17 Gm, By Mouth, Daily, dissolve in water before taking, # 527 Gm, 0 Refills, Maintenance, 03/19/20 16:16:00 EDT, REC Powder, [facility] #59506, 17 Gm By Mouth Daily,Instr:dissolve in water before taking, 168, cm, 01/09/20 13:26:00 EST, He... Start Date: 03/19/20 Status: Ordered sertraline 50 mg oral tablet 1 tablet, By Mouth, Daily, # 90 tablet, 1 Refills, Maintenance, 10/23/22 10:10:00 EST, [facility] #33262, 168, cm, 05/15/22 15:58:00 EDT, Height Start Date: 10/23/22 Status: Ordered triamcinolone 0.025% topical cream See Instructions, APPLY TOPICALLY TO THE AFFECTED AREA TWICE DAILY FOR 14 DAYS, # 60 Gm, 0 Refills,Maintenance, 12/20/22 11:25:00 EST, [facility] #[id number], 28, APPLY TOPICALLY TO THE AFFECTED AREA [...] Team Personnel Name: Celeste Manriquez RN Position: [facility] RN Member Role: Primary Care Nurse Name: Emerson Parra RN Position: [facility] RN Member Role: Primary Care Nurse Name: Radha Baldwin RN Position: [facility] RN Member Role: Primary Care Nurse Name: Alec Dangelo RN Position: [facility] Outreach Member Role: Primary Care Nurse Name: Cathy Santo RN Position: [facility] RN Member Role: Primary Care Nurse Name: Tosin Styles RN Position: [facility] SN Tinner Automatic Member Role: Primary Care Nurse Name: Lorene Martinez RN Position: [facility] Hospital Lawn Sprinkler Installer Member Role: Primary Care Nurse Name: Tacho Hand MD Position: [facility] Primary Care Physician Member Role: PCP Address: Address: [address] [place] [address]- Name: Therese Schwab RN Position: [facility] RN Member Role: Primary Care Nurse Name: Andria Dillon RN Position: [facility] RN Member Role: Primary Care Nurse Care Team Related Persons Name: FLORES LONG Address: [place] [address] Name: GERALDINE COPELAND Address: home [address] [place] [address] Name: MABEL COPELAND Address: [address] [address]
--- OUTSIDE RECORDS SUMMARY | 2023-09-07 13:20 | XMS_ITS | Continuity of Care Document ---
Author Name Unknown Organization [facility] Adult Address [address] [place] [address]- Care Team Providers Care Weatherization Director Name Role Phone Peace MEDINA, Tacho Primary Care Physician [phone] [place] [facility] [place](s): 11/24/22 - 12/24/22 [facility] Adult [address] [place] [address]- Allergies, Adverse Reactions, Alerts Substance Reaction Severity [...] 30 supp, 5 Refills, Maintenance, 10/20/22 16:57:00 [facility] #[id number], 168, cm, 05/15/22 15:58:00 EDT, Height Start Date: 10/20/22 Status: Ordered gabapentin 800 mg oral tablet 1 tablet, By Mouth, 3 times a day, # 270 tablet, 3 Refills, Maintenance, 12/21/22 14:00:00 [facility] #[id number], 168, cm, 12/19/22 13:54:00 EST, Height Start Date: 12/21/22 Stop Date: 12/16/23 Status: Ordered nystatin topical 137536 u/gm cream 1 application, Topically, 2 times a day, Apply to affected area, # 30 Gm, 0 Refills, Maintenance, 12/20/22 11:25:00 EST, [facility] #[id number], 1 application Topically 2 times a day,Instr:Apply to affected area, 168, cm, 12/19/22 13:54:00... Start Date: 12/20/22 Status: Ordered polyethylene glycol 3350 oral powder for reconstitution = 17 Gm, By Mouth, Daily, dissolve in water before taking, # 527 Gm, 0 Refills, Maintenance, 03/19/20 16:16:00 EDT, REC Powder, [facility] #[id number], 17 Gm By Mouth Daily,Instr:dissolve in water before taking, 168, cm, 01/09/20 13:26:00 EST, He... Start Date: 03/19/20 Status: Ordered sertraline 50 mg oral tablet 1 tablet, By Mouth, Daily, # 90 tablet, 1 Refills, Maintenance, 10/23/22 10:10:00 EST, [facility] #[id number], 168, cm, 05/15/22 15:58:00 EDT, Height Start Date: 10/23/22 Status: Ordered triamcinolone 0.025% topical cream See Instructions, APPLY TOPICALLY TO THE AFFECTED AREA TWICE DAILY FOR 14 DAYS, # 60 Gm, 0 Refills,Maintenance, 12/20/22 11:25:00 EST, [facility] #[id number], 28, APPLY TOPICALLY TO THE AFFECTED AREA [...] Team Personnel Name: Celeste Manriquez RN Position: [facility] RN Member Role: Primary Care Nurse Name: Emerson Parra RN Position: [facility] RN Member Role: Primary Care Nurse Name: Radha Baldwin RN Position: [facility] RN Member Role: Primary Care Nurse Name: Alec Dangelo RN Position: [facility] Outreach Member Role: Primary Care Nurse Name: Cathy Santo RN Position: [facility] RN Member Role: Primary Care Nurse Name: Tosin Styles RN Position: [facility] SN Gas Plant Repairer Member Role: Primary Care Nurse Name: Lorene Martinez RN Position: [facility] Hospital Belt Maker Member Role: Primary Care Nurse Name: Tacho Hand MD Position: [facility] Primary Care Physician Member Role: PCP Address: Address: [address] [place] [address]- Name: Therese Schwab RN Position: [facility] RN Member Role: Primary Care Nurse Name: Andria Dillon RN Position: [facility] RN Member Role: Primary Care Nurse Care Team Related Persons Name: FLORES LONG Address: [place] [address] Name: GERALDINE COPELAND Address: home [address] [place] [address] Name: MABEL COPELAND Address: [address] [address]
--- OUTSIDE RECORDS SUMMARY | 2023-09-07 13:20 | XMS_ITS | Continuity of Care Document ---
Author Name Unknown Organization [facility] Adult Address [address] [place] [address]- Care Team Providers Care Merchandise Appraiser Name Role Phone Tacho Hand MD Primary Care Physician [place] [facility] [id number] Date(s): 12/19/22 - 12/26/22 [facility] Adult [address] [place] [address]- Encounter Diagnosis Well adult exam(Discharge Diagnosis) - 12/19/22 History of alcohol dependence(Discharge Diagnosis) - 12/19/22 Major depression, recurrent(Discharge Diagnosis) - 12/19/22 Spinal paraplegia(Discharge Diagnosis) - 12/19/22 Anemia(Discharge Diagnosis) - 12/19/22 Attending Physician: Tacho Hand MD Allergies, Adverse [...] supp, 5 Refills, Maintenance, 10/20/22 16:57:00 EST, [facility] #[id number], 168, cm, 05/15/22 15:58:00 EDT, Height Start Date: 10/20/22 Status: Ordered gabapentin 800 mg oral tablet 1 tablet, By Mouth, 3 times a day, # 270 tablet, 3 Refills, Maintenance, 12/21/22 14:00:00 [facility] #[id number], 168, cm, 12/19/22 13:54:00 EST, Height Start Date: 12/21/22 Stop Date: 12/16/23 Status: Ordered nystatin topical 567042 u/gm cream 1 application, Topically, 2 times a day, Apply to affected area, # 30 Gm, 0 Refills, Maintenance, 12/20/22 11:25:00 EST, Cream, [facility] #[id number], 1 application Topically 2 times a day,Instr:Apply to affected area, 168, cm, 12/19/22 13:54:00... Start Date: 12/20/22 Status: Ordered polyethylene glycol 3350 oral powder for reconstitution = 17 Gm, By Mouth, Daily, dissolve in water before taking, # 527 Gm, 0 Refills, Maintenance, 03/19/20 16:16:00 EDT, REC Powder, [facility] #[id number], 17 Gm By Mouth Daily,Instr:dissolve in water before taking, 168, cm, 01/09/20 13:26:00 EST, He... Start Date: 03/19/20 Status: Ordered sertraline 50 mg oral tablet 1 tablet, By Mouth, Daily, # 90 tablet, 1 Refills, Maintenance, 10/23/22 10:10:00 EST, [facility] #[id number], 168, cm, 05/15/22 15:58:00 EDT, Height Start Date: 10/23/22 Status: Ordered triamcinolone 0.025% topical cream See Instructions, APPLY TOPICALLY TO THE AFFECTED AREA TWICE DAILY FOR 14 DAYS, # 60 Gm, 0 Refills,Maintenance, 12/20/22 11:25:00 [facility] #[id number], 28, APPLY TOPICALLY TO THE AFFECTED AREA [...] Effective Dates Health Status Clinical Service Informant Well adult exam Discharge Diagnosis 12/19/22 History of alcohol dependence Discharge Diagnosis 12/19/22 Major depression, recurrent Discharge Diagnosis 12/19/22 Spinal paraplegia Discharge Diagnosis 12/19/22 Anemia Discharge Diagnosis 12/19/22 Vital Signs Most recent to oldest [Reference Range]: 1 Height 168 cm (12/19/22 1:54 PM) Oxygen Saturation [94-100 %] 99 % (12/19/22 1:54 PM) Pulse Rate [55-90 bpm] 66 bpm (12/19/22 1:54 PM) Blood Pressure [90-138/55-84 mm Hg] 95/5 6mm Hg (12/19/22 1:54 PM) Temperature [96.8-100.4 DegF] 97.9 DegF (12/19/22 1:54 PM) Mode of Delivery (Oxygen) Room air (12/19/22 1:54 PM) Blood pressure sites Arm, left (12/19/22 1:54 PM) Temperature Route Oral (12/19/22 1:54 PM) Weight Obtained Via Standing scale (12/19/22 1:54 PM) Social History Social History Type Response Smoking Status Never (less than 100 in lifetime) entered on: 12/22/19 Sex Male Note * Kat Julian: PERFORM, SIGN, VERIFY Event Display: Patient Education/Instruction Authored Date: [id number] [facility] *B[facility] [place] [facility] Clinical Summary Name ROSANA LONG Age 22 Years 2000 PCP Peace MEDINA, Tacho PCP Visit Date 12/19/2022 13:53:00 Additional Instructions: Scheduled Appointments?? Future Appointments ?*[facility] ?[address] ?[address] ?[place] ?Phone:??--?Fax:??-- ?Appt. Date:??12/21/2022?4:00 PM ?Scheduled Provider:??Thien Stratton MD Follow-Up Instructions ?? Diagnosis Medications: Please continue your medications until treatment is completed or stopped by your provider. Discuss any questions related to medications with your provider. Medications to Continue Taking That Have Changed These medications were not printed or sent to your pharmacy - Gabapentin (gabapentin 800 mg oral tablet) TAKE 1 TABLET BY MOUTH THREE TIMES DAILY. Refills: 0. Next Dose: Medications to Continue with No Changes These medications were not printed or sent to your pharmacy Ammonium Lactate 12% (ammonium lactate 12% topical lotion) 1 adriane Topically Daily. Refills: 0. Next Dose: Bisacodyl (bisacodyl 10 mg rectal suppository) 1 suppository(ies) Per rectum Daily as needed NEEDED FOR CONSTIPATION. Refills: 5. Next Dose: Hydrocortisone Topical (Aquaphor Itch Relief Maximum Strength 1% topical ointment) Topically 2 times a day for 2 wks. Refills: 0. Next Dose: Nystatin Topical (nystatin topical 069241 u/gm cream) 1 adriane Topically twice a day. Apply to affected area. Refills: 0. Next Dose: Polyethylene Glycol 3350 (polyethylene glycol 3350 oral powder for reconstitution) 17 gram Oral Daily. dissolve in water before taking. Refills: 0. Next Dose: Sertraline (sertraline 50 mg oral tablet) 1 tab(s) Oral Daily. Refills: 1. Next Dose: Triamcinolone Topical (triamcinolone 0.025% topical cream) APPLY TOPICALLY TO THE AFFECTED AREA TWICE DAILY FOR 14 DAYS. Refills: 0. Next Dose: No Longer Take the Following Medications Durable Medical Equipment (Big long shower chair) Big long shower chair weighs 168 pounds. Refills:0. Durable Medical Equipment (Hand-held shower) Use as directed. Refills: 0. Allergy Info:?? Latex Medications Given This Visit Future Orders ?No future orders Vital Signs Height 168 cm Weight BMI Blood Pressure 95 mm Hg/56 mm Hg Temperature 97.9 DegF Pulse Rate 66 bpm Respiratory Rate 02 Sat Mode of Delivery 99 %/Room air You can now view a summary of your hospital visit from the comfort of your home through a free online portal called [employer]. [employer] is a website that allows you to securely view your medical information including discharge summary, medications and follow-up visits. ??You can alsosend a secure electronic message to your doctor???s office to request appointments, renew medications or just ask a question. You can enroll at [email or web address] or register during your next office visit. Disclaimer:?? The information provided is of a general nature and is intended to be used in conjunction with the recommendations and advice of your health care practitioner. ??Every effort has been made to ensure that the information provided is accurate and complete at the time it is provided to you however, as your needs change, or, as new ??information becomes available, different or additional instructions may be required. If you have questions, please consult with your primary care provider or pharmacist, as appropriate. ??This information is not intended to serve as substitution for assessment and evaluation by a qualified health care provider. If you do not have a primary care provider, you may find a [facility] provider by calling [facility] FoodText Link at [phone]. For information about the plan of care including goals and instructions for your diagnosis, please see the patient education orders section of this document. Patient Education Materials?? The content of this educational material or handout may have been modified, supplemented, or adapted from its original content and format to support your individualized medical care. Patient Care team information Care Team Personnel Name: Celeste Manriquez RN Position: [facility] SN RN Member Role: Primary Care Nurse Name: Emerson Parra RN Position: [facility] RN Member Role: Primary Care Nurse Name: Radha Baldwin RN Position: [facility] RN Member Role: Primary Care Nurse Name: Alec Dangelo RN Position: [facility] Outreach Member Role: Primary Care Nurse Name: Cathy Santo RN Position: [facility] RN Member Role: Primary Care Nurse Name: Tosin Styles RN Position: [facility] Regulatory Compliance Director Member Role: Primary Care Nurse Name: Lorene Martinez RN Position: [facility] Concaving Machine Operator Member Role: Primary Care Nurse Name: Tacho Hand MD Position: [facility] Primary Care Physician Member Role: PCP Address: Address: [address] [place] [address]- Name: Therese Schwab RN Position: [facility] RN Member Role: Primary Care Nurse Name: Andria Dillon RN Position: [facility] RN Member Role: Primary Care Nurse Care Team Related Persons Name: FLORES LONG Address: [place] [address] Name: GERALDINE COPELAND Address: home [address] [place] [address] Name: MABEL COPELAND Address: [address] [address]
--- OUTSIDE RECORDS SUMMARY | 2023-09-07 13:20 | XMS_ITS | Continuity of Care Document ---
Author Name Unknown Organization [facility] Adult Address [address] [place] [address]- Care Team Providers Care Mink Farmer Name Role Phone Peace MEDINA, Tacho Primary Care Physician [phone] Encounter [facility] [place] Date(s): 11/23/22 - 12/23/22 [facility] Adult [address] [place] [address]- Allergies, Adverse Reactions, Alerts Substance Reaction Severity [...] 30 supp, 5 Refills, Maintenance, 10/20/22 16:57:00 [facility] #[id number], 168, cm, 05/15/22 15:58:00 EDT, Height Start Date: 10/20/22 Status: Ordered gabapentin 800 mg oral tablet 1 tablet, By Mouth, 3 times a day, # 270 tablet, 3 Refills, Maintenance, 12/21/22 14:00:00 [facility] #[id number], 168, cm, 12/19/22 13:54:00 EST, Height Start Date: 12/21/22 Stop Date: 12/16/23 Status: Ordered nystatin topical 058085 u/gm cream 1 application, Topically, 2 times a day, Apply to affected area, # 30 Gm, 0 Refills, Maintenance, 12/20/22 11:25:00 EST, [facility] #[id number], 1 application Topically 2 times a day,Instr:Apply to affected area, 168, cm, 12/19/22 13:54:00... Start Date: 12/20/22 Status: Ordered polyethylene glycol 3350 oral powder for reconstitution = 17 Gm, By Mouth, Daily, dissolve in water before taking, # 527 Gm, 0 Refills, Maintenance, 03/19/20 16:16:00 EDT, REC Powder, [facility] #[id number], 17 Gm By Mouth Daily,Instr:dissolve in water before taking, 168, cm, 01/09/20 13:26:00 EST, He... Start Date: 03/19/20 Status: Ordered sertraline 50 mg oral tablet 1 tablet, By Mouth, Daily, # 90 tablet, 1 Refills, Maintenance, 10/23/22 10:10:00 EST, [facility] #[id number], 168, cm, 05/15/22 15:58:00 EDT, Height Start Date: 10/23/22 Status: Ordered triamcinolone 0.025% topical cream See Instructions, APPLY TOPICALLY TO THE AFFECTED AREA TWICE DAILY FOR 14 DAYS, # 60 Gm, 0 Refills,Maintenance, 12/20/22 11:25:00 EST, [facility] #[id number], 28, APPLY TOPICALLY TO THE AFFECTED AREA [...] Team Personnel Name: Celeste Manriquez RN Position: [facility] RN Member Role: Primary Care Nurse Name: Emerson Parra RN Position: [facility] RN Member Role: Primary Care Nurse Name: Radha Baldwin RN Position: [facility] RN Member Role: Primary Care Nurse Name: Alec Dangelo RN Position: [facility] Outreach Member Role: Primary Care Nurse Name: Cathy Santo RN Position: [facility] RN Member Role: Primary Care Nurse Name: Tosin Styles RN Position: [facility] SN Workday Senior Associate Member Role: Primary Care Nurse Name: Lorene Martinez RN Position: [facility] Hospital Administrative Job Titles Member Role: Primary Care Nurse Name: Tacho Hand MD Position: [facility] Primary Care Physician Member Role: PCP Address: Address: [address] [place] [address]- Name: Therese Schwab RN Position: [facility] RN Member Role: Primary Care Nurse Name: Andria Dillon RN Position: [facility] RN Member Role: Primary Care Nurse Care Team Related Persons Name: FLORES LONG Address: [place] [address] Name: GERALDINE COPELAND Address: home [address] [place] [address] Name: MABEL COPELAND Address: [address] [address]
--- OUTSIDE RECORDS SUMMARY | 2023-09-07 13:21 | XMS_ITS | Continuity of Care Document ---
Author Name Unknown Organization [facility] Adult Address [address] [place] [address]- Care Team Providers Care Heat And Frost Insulator Name Role Phone Peace MEDINA, Tacho Primary Care Physician Encounter [facility] [place] Date(s): 05/14/23 - 06/13/23 [facility] Adult [address] [place] [phone]- Allergies, Adverse Reactions, Alerts Substance Reaction Severity [...] supp, 5 Refills, Maintenance, 04/11/23 10:41:00 EDT, [email or web address] #[id number], 168, cm, 02/01/23 16:04:00 EDT, Height Start [...] 5 Refills, Maintenance, 02/01/23 16:28:00 EDT, Tablet, [facility] #[id number], 168, cm, 02/01/23 16:04:00 EDT... Start Date: 02/01/23 Stop Date: 07/31/23 Status: Ordered gabapentin 800 mg oral tablet 1 tablet, By Mouth, 3 times a day, # 270 tablet, 3 Refills, Maintenance, 12/21/22 14:00:00 EST, [facility] #[id number], 168, cm, 12/19/22 13:54:00 EST, Height Start Date: 12/21/22 Stop Date: 12/16/23 Status: Ordered nystatin topical 813695 u/gm cream 1 application, Topically, 2 times a day, Apply to affected area, # 30 Gm, 0 Refills, Maintenance, 12/20/22 11:25:00 EST, Cream, [facility] #26810, 1 application Topically 2 times a day,Instr:Apply to affected area, 168, cm, 12/19/22 13:54:00... Start Date: 12/20/22 Status: Ordered polyethylene glycol 3350 oral powder for reconstitution = 17 Gm, By Mouth, Daily, dissolve in water before taking, # 527 Gm, 0 Refills, Maintenance, 03/19/20 16:16:00 EDT, REC Powder, [facility] #64528, 17 Gm By Mouth Daily,Instr:dissolve in water before taking, 168, cm, 01/09/20 13:26:00 EST, He... Start Date: 03/19/20 Status: Ordered sertraline 50 mg oral tablet 1 tablet, By Mouth, Daily, # 90 tablet, 1 Refills, Maintenance, 10/23/22 10:10:00 EST, [facility] #[id number], 168, cm, 05/15/22 15:58:00 EDT, Height Start Date: 10/23/22 Status: Ordered triamcinolone 0.025% topical cream See Instructions, APPLY TOPICALLY TO THE AFFECTED AREA TWICE DAILY FOR 14 DAYS, # 60 Gm, 0 Refills,Maintenance, 12/20/22 11:25:00 EST, [facility] #[id number], 28, APPLY TOPICALLY TO THE AFFECTED AREA [...] Team Personnel Name: Celeste Manriquez RN Position: [facility] SN RN Member Role: Primary Care Nurse Name: Emerson Parra RN Position: [facility] RN Member Role: Primary Care Nurse Name: Radha Baldwin RN Position: [facility] RN Member Role: Primary Care Nurse Name: Alec Dangelo RN Position: [facility] Outreach Member Role: Primary Care Nurse Name: Cathy Santo RN Position: [facility] RN Member Role: Primary Care Nurse Name: Tosin Styles RN Position: [facility] Asic Verification Engineer Member Role: Primary Care Nurse Name: Lorene Martinez RN Position: [facility] Insurance Writer Member Role: Primary Care Nurse Name: Tacho Hand MD Position: [facility] Physician - Primary Care Member Role: PCP Address: Address: [address] [place] [phone]- Name: Therese Schwab RN Position: [facility] RN Member Role: Primary Care Nurse Name: Andria Dillon RN Position: [facility] RN Member Role: Primary Care Nurse Care Team Related Persons Name: FLORES LONG Address: [place] [address] Name: GERALDINE COPELAND Address: [address] [place] [address] Name: MABEL COPELAND Address: home [address] [place] [address]
--- OUTSIDE RECORDS SUMMARY | 2023-09-07 13:21 | XMS_ITS | Continuity of Care Document ---
Author Name Unknown Organization [facility] Address [address] [place] [address]- Care Team Providers Care Transit Mixer Operator Name Role Phone Peace MEDINA, Tacho Primary Care Physician [phone] Encounter [facility] [place] ACCT R [id number] Date(s): 02/05/23 - 04/21/23 [facility] [address] [place] [address]- Attending Physician: Thien Stratton MD Allergies, Adverse Reactions, Alerts Substance Reaction [...] supp, 5 Refills, Maintenance, 04/11/23 10:41:00 EDT, [facility] #[id number], 168, cm, 02/01/23 16:04:00 EDT, Height Start [...] 5 Refills, Maintenance, 02/01/23 16:28:00 EDT, Tablet, [facility] #04536, 168, cm, 02/01/23 16:04:00 EDT... Start Date: 02/01/23 Stop Date: 07/31/23 Status: Ordered gabapentin 800 mg oral tablet 1 tablet, By Mouth, 3 times a day, # 270 tablet, 3 Refills, Maintenance, 12/21/22 14:00:00 EST, [facility] #85825, 168, cm, 12/19/22 13:54:00 EST, Height Start Date: 12/21/22 Stop Date: 12/16/23 Status: Ordered nystatin topical 701661 u/gm cream 1 application, Topically, 2 times a day, Apply to affected area, # 30 Gm, 0 Refills, Maintenance, 12/20/22 11:25:00 EST, Cream, [facility] #99410, 1 application Topically 2 times a day,Instr:Apply to affected area, 168, cm, 12/19/22 13:54:00... Start Date: 12/20/22 Status: Ordered polyethylene glycol 3350 oral powder for reconstitution = 17 Gm, By Mouth, Daily, dissolve in water before taking, # 527 Gm, 0 Refills, Maintenance, 03/19/20 16:16:00 EDT, REC Powder, [facility] #55294, 17 Gm By Mouth Daily,Instr:dissolve in water before taking, 168, cm, 01/09/20 13:26:00 EST, He... Start Date: 03/19/20 Status: Ordered sertraline 50 mg oral tablet 1 tablet, By Mouth, Daily, # 90 tablet, 1 Refills, Maintenance, 10/23/22 10:10:00 EST, [facility] #[id number], 168, cm, 05/15/22 15:58:00 EDT, Height Start Date: 10/23/22 Status: Ordered triamcinolone 0.025% topical cream See Instructions, APPLY TOPICALLY TO THE AFFECTED AREA TWICE DAILY FOR 14 DAYS, # 60 Gm, 0 Refills,Maintenance, 12/20/22 11:25:00 [facility] #48704, 28, APPLY TOPICALLY TO THE AFFECTED AREA [...] Team Personnel Name: Celeste Manriquez RN Position: [facility] RN Member Role: Primary Care Nurse [...] Care Nurse Name: Tosin Styles RN Position: [facility] SN Junior Database Administrator Member Role: Primary Care Nurse Name: Lorene Martinez RN Position: [facility] Hospital Lost And Found Clerk Member Role: Primary Care Nurse Name: Tacho Hand MD Position: [facility] Physician - Primary Care Member Role: PCP Address: Address: [address] [place] [address]- Name: Therese Schwab RN Position: [facility] RN Member Role: Primary Care Nurse Name: Andria Dillon RN Position: [facility] RN Member Role: Primary Care Nurse Care Team Related Persons Name: FLORES LONG Address: [place] [address] Name: GERALDINE COPELAND Address: [address] [place] [address] Name: MABEL COPELAND Address: home [address] [place] [address]
--- OUTSIDE RECORDS SUMMARY | 2023-09-07 13:21 | XMS_ITS | Continuity of Care Document ---
Author Name Unknown Organization [facility] Adult Address [address] [place] [address]- Care Team Providers Care International Bank Manager Name Role Phone Peace MEDINA, Tacho Primary Care Physician [phone] Encounter [facility] Date(s): 02/16/23 - 03/18/[address] [address]- Allergies, Adverse Reactions, Alerts Substance Reaction Severity [...] supp, 5 Refills, Maintenance, 10/20/22 16:57:00 EST, [facility] #[id number], 168, cm, 05/15/22 15:58:00 EDT, Height Start [...] 5 Refills, Maintenance, 02/01/23 16:28:00 EDT, Tablet, [facility] #[id number], 168, cm, 02/01/23 16:04:00 EDT... Start Date: 02/01/23 Stop Date: 07/31/23 Status: Ordered gabapentin 800 mg oral tablet 1 tablet, By Mouth, 3 times a day, # 270 tablet, 3 Refills, Maintenance, 12/21/22 14:00:00 EST, [facility] #[id number], 168, cm, 12/19/22 13:54:00 EST, Height Start Date: 12/21/22 Stop Date: 12/16/23 Status: Ordered nystatin topical 768596 u/gm cream 1 application, Topically, 2 times a day, Apply to affected area, # 30 Gm, 0 Refills, Maintenance, 12/20/22 11:25:00 EST, Cream, [facility] #[id number], 1 application Topically 2 times a day,Instr:Apply to affected area, 168, cm, 12/19/22 13:54:00... Start Date: 12/20/22 Status: Ordered polyethylene glycol 3350 oral powder for reconstitution = 17 Gm, By Mouth, Daily, dissolve in water before taking, # 527 Gm, 0 Refills, Maintenance, 03/19/20 16:16:00 EDT, REC Powder, [facility] #29615, 17 Gm By Mouth Daily,Instr:dissolve in water before taking, 168, cm, 01/09/20 13:26:00 EST, He... Start Date: 03/19/20 Status: Ordered sertraline 50 mg oral tablet 1 tablet, By Mouth, Daily, # 90 tablet, 1 Refills, Maintenance, 10/23/22 10:10:00 EST, [facility] #[id number], 168, cm, 05/15/22 15:58:00 EDT, Height Start Date: 10/23/22 Status: Ordered triamcinolone 0.025% topical cream See Instructions, APPLY TOPICALLY TO THE AFFECTED AREA TWICE DAILY FOR 14 DAYS, # 60 Gm, 0 Refills,Maintenance, 12/20/22 11:25:00 EST, [facility][id number], 28, APPLY TOPICALLY TO THE AFFECTED AREA [...] Team Personnel Name: Celeste Manriquez RN Position: [facility] SN RN Member Role: Primary Care Nurse Name: Emerson Parra RN Position: [facility] RN Member Role: Primary Care Nurse Name: Radha Baldwin RN Position: [facility] RN Member Role: Primary Care Nurse Name: Alec Dangelo RN Position: [facility] Outreach Member Role: Primary Care Nurse Name: Cathy Santo RN Position: [facility] RN Member Role: Primary Care Nurse Name: Tosin Styles RN Position: [facility] Optical Goods Drill Operator Member Role: Primary Care Nurse Name: Lorene Martinez RN Position: [facility] Mh Teacher Member Role: Primary Care Nurse Name: Tacho Hand MD Position: [facility] Primary Care Physician Member Role: PCP Address: Address: [address] [place] [place] [address] [address] [place], [place] [address] Name: Therese Schwab RN Position: [facility] RN Member Role: Primary Care Nurse Name: Andria Dillon RN Position: [facility] RN Member Role: Primary Care Nurse Care Team Related Persons Name: FLORES LONG Address: [place] [address] Name: GERALDINE COPELAND Address: home [address] [place] [address] Name: MABEL COPELAND Address: home [address] [place] [id number]
--- OUTSIDE RECORDS SUMMARY | 2023-09-07 13:21 | XMS_ITS | Continuity of Care Document ---
Author Name Unknown Organization [facility] Adult Address [address] [place] [address]- Care Team Providers Care Route Deliverer Name Role Phone Peace MEDINA, Tacho Primary Care Physician Encounter [facility] Date(s): 05/15/23 - 06/14/23 [facility] Adult [address] [place] [address]- Allergies, Adverse Reactions, Alerts Substance Reaction Severity [...] supp, 5 Refills, Maintenance, 04/11/23 10:41:00 EDT, [facility] #[id number], 168, cm, 02/01/23 16:04:00 EDT, Height Start [...] 5 Refills, Maintenance, 02/01/23 16:28:00 EDT, Tablet, [facility] #[id number], 168, cm, 02/01/23 16:04:00 EDT... Start Date: 02/01/23 Stop Date: 07/31/23 Status: Ordered gabapentin 800 mg oral tablet 1 tablet, By Mouth, 3 times a day, # 270 tablet, 3 Refills, Maintenance, 12/21/22 14:00:00 EST, [facility] #[id number], 168, cm, 12/19/22 13:54:00 EST, Height Start Date: 12/21/22 Stop Date: 12/16/23 Status: Ordered nystatin topical 072672 u/gm cream 1 application, Topically, 2 times a day, Apply to affected area, # 30 Gm, 0 Refills, Maintenance, 12/20/22 11:25:00 EST, Cream, [facility] #03474, 1 application Topically 2 times a day,Instr:Apply to affected area, 168, cm, 12/19/22 13:54:00... Start Date: 12/20/22 Status: Ordered polyethylene glycol 3350 oral powder for reconstitution = 17 Gm, By Mouth, Daily, dissolve in water before taking, # 527 Gm, 0 Refills, Maintenance, 03/19/20 16:16:00 EDT, REC Powder, [facility] #51069, 17 Gm By Mouth Daily,Instr:dissolve in water before taking, 168, cm, 01/09/20 13:26:00 EST, He... Start Date: 03/19/20 Status: Ordered sertraline 50 mg oral tablet 1 tablet, By Mouth, Daily, # 90 tablet, 1 Refills, Maintenance, 10/23/22 10:10:00 EST, [facility] #[id number], 168, cm, 05/15/22 15:58:00 EDT, Height Start Date: 10/23/22 Status: Ordered triamcinolone 0.025% topical cream See Instructions, APPLY TOPICALLY TO THE AFFECTED AREA TWICE DAILY FOR 14 DAYS, # 60 Gm, 0 Refills,Maintenance, 12/20/22 11:25:00 EST, [facility] #[id number], 28, APPLY TOPICALLY TO THE AFFECTED AREA [...] Care Nurse Name: Tosin Styles RN Position: [facility] Mesh Worker Member Role: Primary Care Nurse Name: Lorene Martinez RN Position: [facility] Smutter Member Role: Primary Care Nurse Name: Tacho Hand MD Position: [facility] Physician - Primary Care Member Role: PCP Address: Address: [address] [place] [address]- Name: Therese Schwab RN Position: [facility] RN Member Role: Primary Care Nurse Name: Andria Dillon RN Position: [facility] RN Member Role: Primary Care Nurse Care Team Related Persons Name: FLORES LONG Address: [place] [address] Name: GERALDINE COPELAND Address: home [address] [place] [address] Name: MABEL COPELAND Address: home [address] [place] [id number]
--- OUTSIDE RECORDS SUMMARY | 2023-09-07 13:21 | XMS_ITS | Continuity of Care Document ---
Author Name Unknown Organization [facility] Adult Address [address] [place] [address]- Care Team Providers Care Guest Services Assistant Name Role Phone Peace MEDINA, Tacho Primary Care Physician Encounter [facility] Date(s): 10/25/22 - 11/24/22 [facility] Adult [address] [place] [address]- Allergies, Adverse Reactions, Alerts Substance Reaction Severity [...] 0 Refills, Maintenance, 06/28/22 7:36:00 EDT, Lotion, [facility] #[id number], Partial fill upon patient request if the prescription is for a schedule II opioid drug., 1 application Topically Daily, 168,... Start Date: 06/28/22 Status: Ordered Aquaphor Itch Relief Maximum Strength 1% topical ointment See Instructions, Topically 2 times a day for 2 wks, # 25 Gm, 0 Refills, Maintenance, 05/15/22 17:17:00 EDT, [facility] #[id number], Partial fill upon patient request if the [...] supp, 5 Refills, Maintenance, 10/20/22 16:57:00 EST, [facility] #[id number], 168, cm, 05/15/22 15:58:00 EDT, Height Start Date: 10/20/22 Status: Ordered gabapentin 800 mg oral tablet See Instructions, TAKE 1 TABLET BY MOUTH THREE TIMES DAILY, # 90 tablet, 0 Refills, Maintenance, 11/24/22 9:51:00 EST, [facility] #[id number], 168, cm, 10/26/22 10:39:00 EST, Height Start Date: 11/24/22 Status: Ordered gabapentin 800 mg oral tablet 1 tablet, By Mouth, 3 times a day, # 90 tablet, 0 Refills, Maintenance, 10/24/22 9:20:00 EST, [facility] #[id number], 168, cm, 05/15/22 15:58:00 EDT, Height Start Date: 10/24/22 Status: Ordered Hand-held shower Hand-held shower, See Instructions, # 1 each, Refills 0, Tot. Refills 0, Maintenance, Use as directed, 10/26/22 22:03:00 EST, [facility], 168, cm, 10/26/22 10:39:00 EST, Height Start Date: 10/26/22 Status: Ordered nystatin topical 228183 u/gm cream 1 application, Topically, 2 times a day, Apply to affected area, # 30 Gm, 0 Refills, Maintenance, 06/09/22 14:50:00 EDT, Cream, [facility] #[id number], 1 application Topically 2 times a day,Instr:Apply to affected area, 168, cm, 05/15/22 15:58:00... Start Date: 06/09/22 Status: Ordered polyethylene glycol 3350 oral powder for reconstitution = 17 Gm, By Mouth, Daily, dissolve in water before taking, # 527 Gm, 0 Refills, Maintenance, 03/19/20 16:16:00 EDT, REC Powder, [facility] #[id number], 17 Gm By Mouth Daily,Instr:dissolve in water before taking, 168, cm, 01/09/20 13:26:00 EST, He... Start Date: 03/19/20 Status: Ordered sertraline 50 mg oral tablet 1 tablet, By Mouth, Daily, # 90 tablet, 1 Refills, Maintenance, 10/23/22 10:10:00 EST, [facility] #[id number], 168, cm, 05/15/22 15:58:00 EDT, Height Start Date: 10/23/22 Status: Ordered triamcinolone 0.025% topical cream See Instructions, APPLY TOPICALLY TO THE AFFECTED AREA TWICE DAILY FOR 14 DAYS, # 60 Gm, 0 Refills,Maintenance, 10/24/22 9:19:00 EST, [facility] #[id number], 28, APPLY TOPICALLY TO THE AFFECTEDAREA TWICE [...] Team Personnel Name: Celeste Manriquez RN Position: [facility] RN Member Role: Primary Care Nurse Name: [...] Care Nurse Name: Tosin Styles RN Position: [facility] Credit Control Manager Member Role: Primary Care Nurse Name: Lorene Martinez RN Position: [facility] Hospital Organ Pipe Maker Metal Member Role: Primary Care Nurse Name: Tacho Hand MD Position: [facility] Primary Care Physician Member Role: PCP Address: Address: [address] [place] [id number]- [place] Name: Therese Schwab RN Position: S RN Member Role: Primary Care Nurse Name: Andria Dillon RN Position: S RN Member Role: Primary Care Nurse Care Team Related Persons Name: FLORES LONG Address: [place] [address] Name: JANIYAGERALDINE MORALES Address: home [address] [place] [address] Name: MABEL COPELAND Address: [place] [address]
--- OUTSIDE RECORDS SUMMARY | 2023-09-07 13:22 | XMS_ITS | Continuity of Care Document ---
Author Name Unknown Organization [facility] Adult Address [address] [place] [address]- Care Team Providers Care Manager Night Name Role Phone Peace MEDINA, Tacho Primary Care Physician [phone] Encounter [facility] Date(s): 12/19/22 - 01/18/23 [facility] Adult [address] [place] [address]- Allergies, Adverse Reactions, Alerts Substance Reaction Severity [...] 30 supp, 5 Refills, Maintenance, 10/20/22 16:57:[id number], 168, cm, 05/15/22 15:58:00 EDT, Height Start Date: 10/20/22 Status: Ordered gabapentin 800 mg oral tablet 1 tablet, By Mouth, 3 times a day, # 270 tablet, 3 Refills, Maintenance, 12/21/22 14:00:[id number], 168, cm, 12/19/22 13:54:00 EST, Height Start Date: 12/21/22 Stop Date: 12/16/23 Status: Ordered nystatin topical 072319 u/gm cream 1 application, Topically, 2 times a day, Apply to affected area, # 30 Gm, 0 Refills, Maintenance, 12/20/22 11:25:00 EST, [facility] #[id number], 1 application Topically 2 times a day,Instr:Apply to affected area, 168, cm, 12/19/22 13:54:00... Start Date: 12/20/22 Status: Ordered polyethylene glycol 3350 oral powder for reconstitution = 17 Gm, By Mouth, Daily, dissolve in water before taking, # 527 Gm, 0 Refills, Maintenance, 03/19/20 16:16:00 EDT, REC Powder, [facility] #[id number], 17 Gm By Mouth Daily,Instr:dissolve in water before taking, 168, cm, 01/09/20 13:26:00 EST, He... Start Date: 03/19/20 Status: Ordered sertraline 50 mg oral tablet 1 tablet, By Mouth, Daily, # 90 tablet, 1 Refills, Maintenance, 10/23/22 10:10:00 EST, [facility] #[id number], 168, cm, 05/15/22 15:58:00 EDT, Height Start Date: 10/23/22 Status: Ordered triamcinolone 0.025% topical cream See Instructions, APPLY TOPICALLY TO THE AFFECTED AREA TWICE DAILY FOR 14 DAYS, # 60 Gm, 0 Refills,Maintenance, 12/20/22 11:25:00 EST, [facility] #[id number], 28, APPLY TOPICALLY TO THE AFFECTED AREA [...] RN Position: [facility] RN Member Role: Primary Care Nurse Name: Emerson Parra RN Position: [facility] RN Member Role: Primary Care Nurse Name: Radha Baldwin RN Position: [facility] RN Member Role: Primary Care Nurse Name: Alec Dangelo RN Position: [facility] Outreach Member Role: Primary Care Nurse Name: Cathy Santo RN Position: [facility] RN Member Role: Primary Care Nurse Name: Tosin Styles RN Position: [facility] SN Poultry Boner Member Role: Primary Care Nurse Name: Lorene Martinez RN Position: [facility] Hospital Shipping Assistant Member Role: Primary Care Nurse Name: Tacho Hand MD Position: [facility] Primary Care Physician Member Role: PCP Address: Address: [address] [place] [address]- Name: Therese Schwab RN Position: [facility] RN Member Role: Primary Care Nurse Name: Andria Dillon RN Position: [facility] RN Member Role: Primary Care Nurse Care Team Related Persons Name: FLORES LONG Address: [place] [address] Name: GERALDINE COPELAND Address: home [address] [place] [address] Name: MABEL COPELAND Address: [address] [address]
--- OUTSIDE RECORDS SUMMARY | 2023-09-07 13:22 | XMS_ITS | Continuity of Care Document ---
Author Name Unknown Organization [facility] Address [address] [place] [address]- Care Team Providers Care Clam Bed Worker Name Role Phone Tacho Hand MD Primary Care Physician [phone] Encounter [facility] Date(s): 10/31/22 - 01/20/23 [facility] [address] [place] [address] Attending Physician: Thien Stratton MD [...] 30 supp, 5 Refills, Maintenance, 10/20/22 16:57:00 [facility] #[id number], 168, cm, 05/15/22 15:58:00 EDT, Height Start Date: 10/20/22 Status: Ordered gabapentin 800 mg oral tablet 1 tablet, By Mouth, 3 times a day, # 270 tablet, 3 Refills, Maintenance, 12/21/22 14:00:00 [facility] #07044, 168, cm, 12/19/22 13:54:00 EST, Height Start Date: 12/21/22 Stop Date: 12/16/23 Status: Ordered nystatin topical 675483 u/gm cream 1 application, Topically, 2 times a day, Apply to affected area, # 30 Gm, 0 Refills, Maintenance, 12/20/22 11:25:00 EST, Cream, [facility] #[id number], 1 application Topically 2 times a day,Instr:Apply to affected area, 168, cm, 12/19/22 13:54:00... Start Date: 12/20/22 Status: Ordered polyethylene glycol 3350 oral powder for reconstitution = 17 Gm, By Mouth, Daily, dissolve in water before taking, # 527 Gm, 0 Refills, Maintenance, 03/19/20 16:16:00 EDT, REC Powder, [email or web address] #85743, 17 Gm By Mouth Daily,Instr:dissolve in water before taking, 168, cm, 01/09/20 13:26:00 EST, He... Start Date: 03/19/20 Status: Ordered sertraline 50 mg oral tablet 1 tablet, By Mouth, Daily, # 90 tablet, 1 Refills, Maintenance, 10/23/22 10:10:00 EST, [email or web address] #83846, 168, cm, 05/15/22 15:58:00 EDT, Height Start Date: 10/23/22 Status: Ordered triamcinolone 0.025% topical cream See Instructions, APPLY TOPICALLY TO THE AFFECTED AREA TWICE DAILY FOR 14 DAYS, # 60 Gm, 0 Refills,Maintenance, 12/20/22 11:25:00 EST, [email or web address] #[id number], 28, APPLY TOPICALLY TO THE AFFECTED AREA [...] RN Position: [facility] RN Member Role: Primary Care Nurse Name: Emerson Parra RN Position: [facility] RN Member Role: Primary Care Nurse Name: Radha Baldwin RN Position: [facility] RN Member Role: Primary Care Nurse Name: Alec Dangelo RN Position: [facility] Outreach Member Role: Primary Care Nurse Name: Cathy Santo RN Position: [facility] RN Member Role: Primary Care Nurse Name: Tosin Styles RN Position: [facility] SN Pig Casting Machine Operator Member Role: Primary Care Nurse Name: Lorene Martinez RN Position: [facility] Money Counter Member Role: Primary Care Nurse Name: Tacho Hand MD Position: [facility] Primary Care Physician Member Role: PCP Address: Address: [address] [place] [address] Name: Therese Schwab RN Position: [facility] RN Member Role: Primary Care Nurse Name: Andria Dillon RN Position: [facility] RN Member Role: Primary Care Nurse Care Team Related Persons Name: ETHAN FLORES Address: [place] [address] Name: GERALDINE COPELAND Address: home [address] [place] [address] Name: MABEL COPELAND Address: [address] [address]
--- OUTSIDE RECORDS SUMMARY | 2023-09-07 13:22 | XMS_ITS | Continuity of Care Document ---
Author Name Unknown Organization [facility] Address [address] [place] [address]- Care Team Providers Care Residential Recycle Driver Name Role Phone Tacho Hand MD Primary Care Physician Encounter [facility] [place] Date(s): 03/22/23 - 04/21/23 [facility] [address] [place] [address]- Attending Physician: Reyna Zuniga Admitting Physician: Reyna Zuniga Referring Physician: Reyna Zuniga Allergies, Adverse Reactions, Alerts Substance Reaction Severity [...] supp, 5 Refills, Maintenance, 04/11/23 10:41:00 EDT, [email or web address] #[id number], 168, cm, 02/01/23 16:04:00 EDT, Height Start [...] 5 Refills, Maintenance, 02/01/23 16:28:00 EDT, Tablet, [facility] #40713, 168, cm, 02/01/23 16:04:00 EDT... Start Date: 02/01/23 Stop Date: 07/31/23 Status: Ordered gabapentin 800 mg oral tablet 1 tablet, By Mouth, 3 times a day, # 270 tablet, 3 Refills, Maintenance, 12/21/22 14:00:00 EST, [facility] #57769, 168, cm, 12/19/22 13:54:00 EST, Height Start Date: 12/21/22 Stop Date: 12/16/23 Status: Ordered nystatin topical 104797 u/gm cream 1 application, Topically, 2 times a day, Apply to affected area, # 30 Gm, 0 Refills, Maintenance, 12/20/22 11:25:00 EST, Cream, [facility] #82913, 1 application Topically 2 times a day,Instr:Apply to affected area, 168, cm, 12/19/22 13:54:00... Start Date: 12/20/22 Status: Ordered polyethylene glycol 3350 oral powder for reconstitution = 17 Gm, By Mouth, Daily, dissolve in water before taking, # 527 Gm, 0 Refills, Maintenance, 03/19/20 16:16:00 EDT, REC Powder, [facility] #45027, 17 Gm By Mouth Daily,Instr:dissolve in water before taking, 168, cm, 01/09/20 13:26:00 EST, He... Start Date: 03/19/20 Status: Ordered sertraline 50 mg oral tablet 1 tablet, By Mouth, Daily, # 90 tablet, 1 Refills, Maintenance, 10/23/22 10:10:00 EST, [email or web address] #74659, 168, cm, 05/15/22 15:58:00 EDT, Height Start Date: 10/23/22 Status: Ordered triamcinolone 0.025% topical cream See Instructions, APPLY TOPICALLY TO THE AFFECTED AREA TWICE DAILY FOR 14 DAYS, # 60 Gm, 0 Refills,Maintenance, 12/20/22 11:25:00 EST, [email or web address] #59255, 28, APPLY TOPICALLY TO THE AFFECTED AREA [...] Team Personnel Name: Celeste Manriquez RN Position: [facility] RN Member Role: Primary Care Nurse [...] RN Position: [facility] SN Anatomic Pathologist Member Role: Primary Care Nurse Name: Lorene Martinez RN Position: [facility] Hospital Leader Assembler Member Role: Primary Care Nurse Name: Tacho Hand MD Position: [facility] Physician - Primary Care Member Role: PCP Address: Address: [address] [place] [id number]- Name: Therese Schwab RN Position: [facility] RN Member Role: Primary Care Nurse Name: Andria Dillon RN Position: [facility] RN Member Role: Primary Care Nurse Care Team Related Persons Name: FLORES LONG Address: [place] [address] Name: GERALDINE COPELAND Address: home [address] [place] [id number] Name: MABEL COPELAND Address: [address] [address]
== END 2023-09-07 13:54 | disposition home or self-care (01) ==
LOC: HO.HUSH 13:15
PROVIDERS: PCP Internal Medicine; Visit Provider Urology
DX: N52.8 Other male erectile dysfunction (principal); N31.9 Neuromuscular dysfunction of bladder, unspecified; G82.20 Paraplegia, unspecified
CPT/HCPCS: 99213

== ENCOUNTER → 2023-09-07 13:15 | Outpatient (BNVA) | payer OTHER, SELFPAY | PROVIDERS: PCP Internal Medicine; Visit Provider Urology ==